=== PATIENT | female | born 1970 | race Caucasian/White ===

== ENCOUNTER 2020-09-22 05:57 | Inpatient (IN) ==
--- NOTE | 2020-09-05 14:44 | PAT Medication Instructions ---
Medication Instructions Date of Service September 05, 2020 Home Medications acetaminophen [Tylenol Extra Strength] 1,000 mg PO Q6H PRN albuterol sulfate [Ventolin HFA] 2 puff INHALATION Q6H PRN ascorbic acid (vitamin C) [Vitamin C] 1,000 mg PO QAM atorvastatin 80 mg PO PM cholecalciferol (vitamin D3) [Vitamin D3] 50 mcg PO QAM fluticasone furoate-vilanterol [Breo Ellipta] 1 inh INHALATION QAM hydrochlorothiazide 12.5 mg PO QAM insulin glargine [Lantus Solostar U-100 Insulin] 70 unit SUBCUT HS insulin glulisine U-100 [Apidra SoloStar U-100 Insulin] 10 - 20 unit SUBCUT TIDM levothyroxine 137 mcg PO QAM lisinopril 40 mg PO QAM metoprolol tartrate 100 mg PO QAM multivitamin 1 tab PO QAM omeprazole 40 mg PO BID venlafaxine [Effexor] 75 mg PO BID zinc 50 mg PO QAM DO NOT take the morning of surgery ascorbic acid (vitamin C) [Vitamin C] 1,000 mg PO QAM cholecalciferol (vitamin D3) [Vitamin D3] 50 mcg PO QAM hydrochlorothiazide 12.5 mg PO QAM insulin glulisine U-100 [Apidra SoloStar U-100 Insulin] 10 - 20 unit SUBCUT TIDM lisinopril 40 mg PO QAM multivitamin 1 tab PO QAM zinc 50 mg PO QAM Take morning of surgery With a small sip of water, OTHERWISE NOTHING TO EAT OR DINK AFTER MIDNIGHT: acetaminophen [Tylenol Extra Strength] 1,000 mg PO Q6H PRN (okay to take up to 4 hours prior to surgery if needed) albuterol sulfate [Ventolin HFA] 2 puff INHALATION Q6H PRN (use if needed; please bring rescue inhaler with you to hospital day of surgery if possible) fluticasone furoate-vilanterol [Breo Ellipta] 1 inh INHALATION QAM levothyroxine 137 mcg PO QAM metoprolol tartrate 100 mg PO QAM omeprazole 40 mg PO BID venlafaxine [Effexor] 75 mg PO BID Take evening before surgery acetaminophen [Tylenol Extra Strength] 1,000 mg PO Q6H PRN (if needed) albuterol sulfate [Ventolin HFA] 2 puff INHALATION Q6H PRN (if needed) atorvastatin 80 mg PO PM insulin glargine [Lantus Solostar U-100 Insulin] 70 unit SUBCUT HS insulin glulisine U-100 [Apidra SoloStar U-100 Insulin] 10 - 20 unit SUBCUT TIDM omeprazole 40 mg PO BID venlafaxine [Effexor] 75 mg PO BID Other Notes If you have any questions please call us at [phone] or [phone] or [phone] or [phone]
--- NOTE | 2020-09-08 11:10 | Anesthesiology Consultation ---
Date of Service September 08, 2020 Assessment & Plan (1) Encounter for pre-operative examination: - Abnormal preop EKG: Unconfirmed preop EKG done 09/08/20 notes T wave abnormality, consider lateral ischemia. Awaiting cardiology response. - Awaiting surgeon-ordered PCP clearance. - COVID screening: Per assessment on 09/08: Travel screen negative, no known COVID-19 positive contacts or current COVID-19 related symptoms. Surgeon arranging preop COVID testing. Awaiting results. - Check BSG, test AM DOS - S/P Right shoulder arthroscopy, SAD, distal clavicle excision (08/08/17): Grade view 3, MAC#3, ETT 7 + PNB at [facility] Chart Review Chart Review: Patient seen in Pre Admission Testing Teaching & Discussion Pre-Anesthesia Teaching/Discussion Notes: Instructed NPO after midnight before surgery,except medications with 15 cc of water. Medication instructions provided according to the PAT guidelines. History Surgery Operation Date: 09/22/20 09:20 Proposed Procedures p L3-L4 Decompression Fusion, Spinal Cord Monitoring - Don Zayas DO Height/Weight Height: 5 ft 2 in Weight: 72.7 kg Allergies Allergy/AdvReac Type Severity Reaction Status Date / Time acetaminophen Allergy Severe Anaphylaxis Verified 09/08/20 14:53 ortega Allergy Severe Anaphylaxis Verified 09/08/20 14:53 ibuprofen Allergy Severe Anaphylaxis Verified 09/08/20 14:53 naproxen Allergy Severe Anaphylaxis Verified 09/08/20 14:53 oxycodone Allergy Severe Anaphylaxis Verified 09/08/20 14:53 Penicillins Allergy Severe Anaphylaxis Verified 09/08/20 14:53 pineapple Allergy Severe Anaphylaxis Verified 09/08/20 14:53 Medications Home Medications Medication Instructions Recorded Confirmed Last Taken Albuterol Sulfate (Proair 1 puff INHALATION DAILY #0 08/12/17 Unknown Respiclick) FLUTICASONE PROP/SALMETEROL 1 puff INHALATION BID #0 inhaler 08/12/17 Unknown (Advair Diskus 500/50 60 Dose) Insulin Glargine (Lantus) 42 unit SC QPM #0 vial 08/12/17 Unknown Lisinopril (Zestril) 40 mg PO DAILY #0 tab 08/12/17 Unknown Multiple Vitamins W/ Minerals 1 tab PO DAILY #0 08/12/17 Unknown (Airborne Immune System) Multivitamin 1 tab PO DAILY #0 tab 08/12/17 Unknown VENLAFAXINE HCL (EFFEXOR XR) 1 cap PO BID #0 08/12/17 Unknown acetaminophen 500 mg capsule 1,000 mg PO Q6H PRN 09/05/20 09/05/20 Unknown albuterol sulfate 90 mcg/actuation 2 puff INHALATION Q6H PRN 09/05/20 09/05/20 Unknown aerosol inhaler (Ventolin HFA) ascorbic acid (vitamin C) 1,000 mg 1,000 mg PO QAM 09/05/20 09/05/20 Unknown tablet,extended release (Vitamin C ER) atorvastatin 80 mg tablet 80 mg PO PM 09/05/20 09/05/20 Unknown cholecalciferol (vitamin D3) 50 50 mcg PO QAM 09/05/20 09/05/20 Unknown mcg (2,000 unit) capsule (Vitamin D3) fluticasone furoate 100 1 inh INHALATION QAM 09/05/20 09/05/20 Unknown mcg-vilanterol 25 mcg/dose inhalation powder (Breo Ellipta) hydrochlorothiazide 12.5 mg capsule 12.5 mg PO QAM 09/05/20 09/05/20 Unknown insulin glargine 100 unit/mL (3 70 unit SUBCUT HS 09/05/20 09/05/20 Unknown mL) subcutaneous pen (Lantus Solostar U-100 Insulin) insulin glulisine U-100 100 10 - 20 unit SUBCUT TIDM 09/05/20 09/05/20 Unknown unit/mL subcutaneous pen (Apidra SoloStar U-100 Insulin) levothyroxine 137 mcg tablet 137 mcg PO QAM 09/05/20 09/05/20 Unknown lisinopril 40 mg tablet 40 mg PO QAM 09/05/20 09/05/20 Unknown metoprolol tartrate 100 mg tablet 100 mg PO QAM 09/05/20 09/05/20 Unknown multivitamin 1 tab PO QAM 09/05/20 09/05/20 Unknown omeprazole 40 mg capsule,delayed 40 mg PO BID 09/05/20 09/05/20 Unknown release venlafaxine 75 mg tablet 75 mg PO BID 09/05/20 09/05/20 Unknown zinc 50 mg tablet 50 mg PO QAM 09/05/20 09/05/20 Unknown Past Medical History Medical History Anxiety Arthritis Asthma controlled Cancer Thyroid s/p surgery and radiation (no chemo) Depression Diabetes mellitus type 1 IDDM Fatty liver GERD (gastroesophageal reflux disease) controlled Hyperlipidemia Hypertension Post-operative hypothyroidism Exercise / Class Metabolic Activity III < 4 Walking/Shop/Light housework (one FS (no CP, very mild SOB)) Past Family History Family History Mother Family history of reaction to anesthesia SLOW TO WAKE UP Family history of diabetes mellitus Past Surgical History Surgical History H/O neck surgery x2 (20 years ago, 10 years ago) > + metal implants History of colonoscopy 2020 History of esophagogastroduodenoscopy (EGD) Multiple History of open reduction and internal fixation (ORIF) procedure Wrist History of shoulder surgery Right x2 Right shoulder arthroscopy, SAD, distal clavicle excision (08/08/17): Grade view 3, MAC#3, ETT 7 + PNB at [facility] History of thyroidectomy, total 2018 Past Anesthesia History Mother: + "slow to wake" + PONV Patient: + "slow to wake." Also, + Dyspnea after in PACU ([place]) > put tube back in and kept in PACU longer (with neck surgery, [facility] [place] 20 years ago). No similar issues with more recent surgeries/anesthesia. History of PONV History of PONV and Hx of Motion Sickness (occasional) Social History Smoking Status: Former smoker Do You Dip or Chew Tobacco: No Smoking End Date: Quit as teen Hx Alcohol Use: No Hx Substance Use: No Review of Systems Patient denies chest pain, shortness of breath, fever, chills, cough, wheezing, palpitations. Physical Exam Vital Signs VITALS BP 120/74 P 89 TEMP 99.4 SP02 96%RA RESP 16 PHYSICAL Full cervical extension range of motion. Full TMJ range of motion. TMD 2.5 finger breaths Mallampati Score 1 Dentition: edentulous Lungs: clear throughout to auscultation Cardiac: regular rate and rhythm, no murmurs noted Spine: normal Carotid arteries: negative bruit Extremities: no edema Lab Results Anesthesia Preop Results Results Anesthesia Widget: WBC 7.75 K/uL (4.8-10.8) 09/08/20 Hgb 12.6 g/dL (12.0-16.0) 09/08/20 Hct 36.8 % (37-47) L 09/08/20 Plt 250 K/uL (130-400) 09/08/20 Na 136 mmol/L (136-145) 09/08/20 K 4.1 mmol/L (3.5-5.1) 09/08/20 Cl 101 mmol/L (98-107) 09/08/20 CO2 32 mmol/L (21-32) 09/08/20 BUN 15 mg/dl (7-18) 09/08/20 Creat 0.83 mg/dl (0.6-1.2) 09/08/20 Glucose Level 316 mg/dl (70-99) H* 09/08/20 POC Glucose 108 mg/dl (70-90) H 08/18/17 PT 9.4 Seconds (9.0-12.0) 09/08/20 PTT 22.8 Seconds (21.0-31.0) 09/08/20 INR 0.9 (0.9-1.1) 09/08/20 HA1c 9.3 % (4.5-5.6) H 09/08/20 Urine Color Yellow 09/08/20 Urine Appearance Clear (Clear) 09/08/20 Urine pH 6.0 (4.5-7.5) 09/08/20 Urine Specific [place] 1.036 (1.000-1.030) H 09/08/20 Urine Protein Negative (Negative) 09/08/20 Urine Glucose (UA) 3+ (Negative) H 09/08/20 Urine Ketones Trace (Negative) H 09/08/20 Urine Blood Negative (Negative) 09/08/20 Urine Nitrite Negative (Negative) 09/08/20 Urine Bilirubin Negative (Negative) 09/08/20 Urine Urobilinogen Negative (Negative) 09/08/20 Urine Leukocyte Esterase Trace (Negative) H 09/08/20 Urine WBC (Auto) >30 /hpf (0-5) H 09/08/20 Urine RBC (Auto) 0-4 /hpf (0-4) 09/08/20 Urine Hyaline Casts (Auto) 1-5 /lpf (0-5) 09/08/20 Urine Epithelial Cells (Auto) 20-30 /lpf (0-5) H 09/08/20 Urine Bacteria (Auto) Negative (Negative) 09/08/20 Blood Type A Positive 09/08/20 Antibody Screen NEGATIVE 09/08/20 Lab Comments: Type 1 DM. Surgeon's office made aware of elevated hgba1c/glucose (hgba1c EAG = 220). Preop testing to be forwarded to PCP for continuity of care* Testing Electrocardiogram Date: 09/08/20 Normal sinus rhythm at 90 bpm. SCOT. Moderate voltage criteria for LVH, may be normal variant. T wave abnormality, consider lateral ischemia. Unconfirmed report. Chest X-Ray Date: 09/08/20 Findings: + NAD
[2020-09-22] MEDS ORDERED: CLINDAMYCIN 600 MG/54 ML BAG IV SCH (06:00)
[2020-09-22] MEDS ORDERED: GABAPENTIN 900 MG DOSE PO SCH (06:00)
[2020-09-22] MEDS ORDERED: LR 15ML/HR IV SCH (06:00)
[2020-09-22] MEDS ORDERED: ACETAMINOPHEN 500 MG TAB ONE (06:19)
[2020-09-22] MEDS ORDERED: LIDOCAINE 2% 2 ML VIAL/AMP(20MG/ML) INFIL ONE (06:51)
[2020-09-22] MEDS ORDERED: MIDAZOLAM HCL 1 MG/ML 2ML VIAL ONE (06:51)
[2020-09-22] MEDS ORDERED: PROPOFOL IV EMULSION 10 MG/ML 20 ML VIAL IV ONE (06:51)
[2020-09-22] MEDS ORDERED: ONDANSETRON INJ 2 MG/ML 2 ML VIAL ONE ×2 (06:51→08:36)
[2020-09-22] MEDS ORDERED: ROCURONIUM BROMIDE 10 MG/ML 5 ML VIAL IV ONE (06:51)
[2020-09-22] MEDS ORDERED: fentaNYL citrate 100 MCG/2 ML VIAL ONE (06:51)
[2020-09-22] MEDS ORDERED: BUPIVACAINE/EPINEPHRINE 0.5% MPF 1:200,000 30 ML VIAL ONE (07:01)
--- NOTE | 2020-09-22 07:23 | History & Physical Bridge Note ---
Date of Service September 22, 2020 History & Physical Bridge Note I have examined the patient, reviewed the History & Physical and in the interval since the performance of the History & Physical I have noted the following changes of clinical significance: no changes noted
[2020-09-22] MEDS ORDERED: NALOXONE HCL 0.4 MG/1 ML VIAL/CARP IV PRN ×2 (07:24→13:33)
[2020-09-22] MEDS ORDERED: LABETALOL HCL IV 5 MG/ML 20ML IV PRN (07:24)
[2020-09-22] MEDS ORDERED: ATROPINE SULFATE 0.1 MG/ML 10ML SYR IV PRN (07:24)
[2020-09-22] MEDS ORDERED: ePHEDrine sulfate 50 MG/ML AMP IV PRN (07:24)
[2020-09-22] MEDS ORDERED: FLUMAZENIL 0.1 MG/1 ML 10 ML VIAL IV PRN (07:24)
[2020-09-22] MEDS ORDERED: ONDANSETRON INJ 2 MG/ML 2 ML VIAL IV PRN ×2 (07:24→13:33)
[2020-09-22] MEDS ORDERED: PROMETHAZINE HCL 12.5 MG in SODIUM CHLORIDE 0.9% 50 ML IV PRN ×2 (07:24→13:33)
--- NOTE | 2020-09-22 07:26 | History & Physical Report ---
Date of Service September 22, 2020 Assessment & Plan (1) Neurogenic claudication due to lumbar spinal stenosis: Plan: L3-L4 decompression fusion History of Present Illness Chief Complaint: Back and leg pain Primary Care Provider: Brinda Garcia This is a 50-year-old female who presents with chronic persistent back and leg pain. Failing course of nonoperative care is here for surgical intervention. Allergies Allergy/AdvReac Type Severity Reaction Status Date / Time ortega Allergy Severe Anaphylaxis Verified 09/08/20 14:53 ibuprofen Allergy Severe Anaphylaxis Verified 09/08/20 14:53 naproxen Allergy Severe Anaphylaxis Verified 09/08/20 14:53 oxycodone Allergy Severe Anaphylaxis Verified 09/08/20 14:53 Penicillins Allergy Severe Anaphylaxis Verified 09/08/20 14:53 pineapple Allergy Severe Anaphylaxis Verified 09/08/20 14:53 fruit Allergy Difficulty Uncoded 09/22/20 06:12 Breathing Home Medications Medication Instructions Recorded Confirmed Type Insulin Glargine (Lantus) 60 unit SC QPM #0 vial 08/12/17 09/22/20 History acetaminophen 500 mg capsule 1,000 mg PO Q6H PRN 09/05/20 09/22/20 History albuterol sulfate 90 mcg/actuation 2 puff INHALATION Q6H PRN 09/05/20 09/22/20 History aerosol inhaler (Ventolin HFA) ascorbic acid (vitamin C) 1,000 mg 1,000 mg PO QAM 09/05/20 09/22/20 History tablet,extended release (Vitamin C ER) atorvastatin 80 mg tablet 80 mg PO PM 09/05/20 09/22/20 History cholecalciferol (vitamin D3) 50 50 mcg PO QAM 09/05/20 09/22/20 History mcg (2,000 unit) capsule (Vitamin D3) fluticasone furoate 100 1 inh INHALATION QAM 09/05/20 09/22/20 History mcg-vilanterol 25 mcg/dose inhalation powder (Breo Ellipta) hydrochlorothiazide 12.5 mg capsule 12.5 mg PO QAM 09/05/20 09/22/20 History insulin glulisine U-100 100 10 - 20 unit SUBCUT TIDM 09/05/20 09/22/20 History unit/mL subcutaneous pen (Apidra SoloStar U-100 Insulin) levothyroxine 137 mcg tablet 137 mcg PO QAM 09/05/20 09/05/20 History lisinopril 40 mg tablet 40 mg PO QAM 09/05/20 09/22/20 History metoprolol tartrate 100 mg tablet 100 mg PO QAM 09/05/20 09/22/20 History multivitamin 1 tab PO QAM 09/05/20 09/22/20 History omeprazole 40 mg capsule,delayed 40 mg PO BID 09/05/20 09/05/20 History release venlafaxine 75 mg tablet 75 mg PO BID 09/05/20 09/05/20 History zinc 50 mg tablet 50 mg PO QAM 09/05/20 09/22/20 History Past Med/Surg History Medical History Anxiety Arthritis Asthma controlled Cancer Thyroid s/p surgery and radiation (no chemo) Depression Diabetes mellitus type 1 IDDM Fatty liver GERD (gastroesophageal reflux disease) controlled Hyperlipidemia Hypertension Post-operative hypothyroidism Surgical History H/O neck surgery x2 (20 years ago, 10 years ago) > + metal implants History of colonoscopy 2020 History of esophagogastroduodenoscopy (EGD) Multiple History of open reduction and internal fixation (ORIF) procedure Wrist History of shoulder surgery Right x2 Right shoulder arthroscopy, SAD, distal clavicle excision (08/08/17): Grade view 3, MAC#3, ETT 7 + PNB at [facility] History of thyroidectomy, total 2019 Family History Mother Family history of reaction to anesthesia SLOW TO WAKE UP Family history of diabetes mellitus Social History (System 09/08/20 @ 11:49 by Lucretia Leblanc) Smoking Status: Former smoker Smoking End Date: Quit as teen; Second Hand Exposure: Yes (PARENTS SMOKED); Do You Dip or Chew Tobacco: No; Hx Alcohol Use: No Hx Substance Use: No Preferred Language: Malay Communication Ability: Effective International Trade Manager Required: No Beliefs That Will Affect Care: None Current Living Situation: Spouse current occupational status: unemployed Other Information That Helps Us Care for You: No Feels Safe at Home: Yes Safety Concerns: Feels Safe At This Time Assistive Devices: Glasses Assistive Devices Comment: NO TEETH/DOES WEAR HER DENTURES Physical Exam Physical Exam: Patient is alert and oriented Heart regular rhythm Lungs clear to auscultation Results & Data ([facility]) Vital Signs (Past 12 Hours) Vital Signs Temp Pulse Resp BP Pulse Ox 09/22/20 06:38 36.7 C 88 16 131/75 98
[2020-09-22] MEDS ORDERED: FLOSEAL HEMOSTATIC MATRIX 10ML TOP ONE (08:30)
[2020-09-22] MEDS ORDERED: NEOSTIGMINE METHYLSULFATE 1 MG/ML 10ML VIAL ONE (08:36)
[2020-09-22] MEDS ORDERED: GLYCOPYRROLATE 0.2 MG/ML VIAL ONE (08:36)
[2020-09-22] MEDS ORDERED: SUCCINYLCHOLINE CHLORIDE 20 MG/ML 10 ML VIAL IV ONE (08:36)
[2020-09-22] MEDS ORDERED: ESMOLOL HCL INJ 10 MG/ML 10ML VIAL IV ONE (08:36)
--- NOTE | 2020-09-22 09:19 | Operative Report ---
Post Operative Report Pre & Post Diagnosis Operation Date: 09/22/20 07:45 Pre-Op Diagnosis: Spinal Stenosis, Lumbar Region with Neurogenic Post-Op Diagnosis: Spinal Stenosis, Lumbar Region with Neurogenic I identified the patient and participated in the time-out.: Yes Procedure Operation Date: 09/22/20 07:45 Actual Procedures #1 lumbar decompression with bilateral medial facetectomies and foraminotomies L2-3 L3-L4. #2 posterior spinal fusion L3-L4. #3 placed posterior instrumentation L3-L4. #4 interbody fusion L3-L4. #5 placement peek cage 13 x 22 mm at L3-L4. #6 placement locally harvested morselized autograft in the posterior gutters. #7 placement infuse collagen sponge, and master graft in the posterior gutters and I factor interbody space. Surgeon Don Zayas, Recreation Director None Estimated Blood Loss 50 Findings Consistent with Post-Op Diagnosis Specimens None Indications This is a 50-year-old female presents with above-mentioned diagnosis after failing since course of nonoperative care she is here for the above-mentioned seizure. Description of Procedure Patient was met with identified informed consent obtained. Patient was then taken to the operative suite Underwent intubation placed in prone position the Varghese table Sven frame. Bony prominences well-padded eyes inspected to ensure no external pressure placed upon them. This point lumbar spine was prepped and draped in a sterile fashion. Sharp dissection with the assistance of Bovie cautery performed down to and exposing the lamina and transverse processes of L3 and L4. From a caudal cephalad fashion complete laminectomy of L3 partial negative L2 was performed including bilateral medial facetectomies and foraminotomies addressing severe spinal stenosis. Pedicle screws were then placed in L3 and L4 bilaterally with assistance of fluoroscopy and the properly sized mary placed. By way of a peña sfemoral approach on the left complete discectomy was performed endplates curetted to subcortical bleeding bone and a 13 x 22 mm peek cage filled with I factor tapped in position. The rods then compressed locked in final position bilaterally. The transverse processes of L3 and L4 burred to subcortical bleeding bone. Infuse collagen sponge master graft local autograft was placed in the posterior gutters. 15 round ANGELINE drain inserted. The incision was then closed with 1 Vicryl the fascia 2-0 Vicryl subcutaneously and 4 Monocryl for final skin closure. Steri-Strip sterile dressings placed. Patient waken taken to PACU stable condition. Please note spinal cord monitoring was utilized at the procedure no changes noted. I attest to the content of the Intraoperative Record and any orders documented therein. Any exceptions are noted below.
[2020-09-22] MEDS: fentaNYL citrate 100 MCG/2 ML VIAL IV PRN ×4 (09:47→10:02)
--- NOTE | 2020-09-22 09:52 | Fluoroscopy Report ---
FL lumbar spine 2-3V CLINICAL HISTORY: L3-4 DECOMPRESSION/FUSION/INTERBODY COMPARISON STUDY: None. FLUOROSCOPY TIME: 13 seconds. FINDINGS: 2 fluoroscopic spot image of the lower lumbar spine demonstrate posterior decompression and fusion within the lower lumbar spine with pedicle screws and rods. The exact levels are difficult to assess on this limited imaging but appears to represent the L3-L4 level if L5 is considered a transi tional vertebra. IMPRESSION: Posterior decompression fusion within the lower lumbar spine described above. The hardwar e appears intact. ACT 112: Negative or not required by law. Electronically signed by: Eric Lynne M.D. 09/22/2020 9:50 AM
[2020-09-22] MEDS ORDERED: PHARMACY GLYCEMIC MGMT CONSULT PRN (09:57)
[2020-09-22] MEDS ORDERED: HYDROmorphone INJ 0.5 MG/0.5 ML SYR ONE (10:20)
[2020-09-22] MEDS: HYDROmorphone INJ 1 MG/ML SYRINGE IV PRN ×2 (10:21→10:26)
--- NOTE | 2020-09-22 10:55 | Anesthesiology Progress Note ---
Date of Service September 22, 2020 Anesthesia Post Procedure Vital Signs Vital Signs: Temp Pulse Pulse Resp BP BP Pulse Ox 09/22/20 10:45 99 H 18 142/69 H 98 09/22/20 10:35 99 H 18 149/68 H 98 09/22/20 10:25 36.5 C 85 16 125/60 94 09/22/20 10:15 95 H 16 150/65 H 100 09/22/20 10:05 93 H 16 151/68 H 99 09/22/20 09:55 95 H 16 134/82 99 09/22/20 09:45 91 H 16 154/65 H 100 09/22/20 09:35 36.6 C 94 H 16 135/68 100 09/22/20 06:38 36.7 C 88 16 131/75 98 Pain Intensity Back: Pain Intensity: 4 Transfer of Care Handoff Completed per policy Notes Mental Status: alert / awake / arousable Patient Amnestic to Procedure: Yes Nausea / Vomiting: adequately controlled Pain: adequately controlled Airway Patency, RR, SpO2: stable & adequate BP & HR: stable & adequate Hydration State: stable & adequate Anesthetic Complications: no major complications apparent
[2020-09-22] MEDS ORDERED: SOD PHOSPHATE/SOD BIPHOSPHATE ENEMA 132 ML BTL PR PRN (13:33)
[2020-09-22] MEDS ORDERED: ALUMINUM/MAGNESIUM SUSP 30 ML UDC PO PRN (13:33)
[2020-09-22] MEDS ORDERED: FAMOTIDINE 20 MG TAB PO PRN (13:33)
[2020-09-22] MEDS ORDERED: LORazepam 0.5 MG TAB PO PRN (13:33)
[2020-09-22] MEDS ORDERED: METOCLOPRAMIDE HCL INJ 5 MG/ML 2 ML VIAL IV PRN (13:33)
[2020-09-22] MEDS ORDERED: NON-FORMULARY MEDICATION (Acetaminophen 500 mg Capsule) PO PRN (13:33)
[2020-09-22] MEDS ORDERED: DO NOT ADMINISTER PNEUMOCOCCAL VACCINE PRN (13:33)
[2020-09-22] MEDS ORDERED: diphenhydrAMINE Capsule 25 MG CAP PO PRN (13:33)
[2020-09-22] MEDS ORDERED: DO NOT ADMINISTER FLU VACCINE PRN (13:33)
[2020-09-22] MEDS ORDERED: ALBUTEROL HFA 8 GM INHALER INH PRN (13:33)
[2020-09-22] MEDS ORDERED: ACETAMINOPHEN 1,000 MG/100 ML VIAL IV PRN (13:33)
[2020-09-22] MEDS ORDERED: SODIUM CHLORIDE 0.9% 1000ML 1,000 ML IV SCH (13:33)
[2020-09-22] MEDS ORDERED: hydrOXYzine HCl 25 MG TAB PO PRN (13:33)
[2020-09-22] MEDS ORDERED: bisacodyL 10 MG SUPP PR PRN (13:33)
[2020-09-22] MEDS ORDERED: MAGNESIUM HYDROXIDE SUSP 30 ML UDC PO PRN (13:33)
[2020-09-22] MEDS ORDERED: ONDANSETRON 4 MG OD TAB PO PRN (13:33)
[2020-09-22] MEDS ORDERED: LORazepam 0.5 MG/1 ML VIAL IV PRN (13:33)
[2020-09-22] MEDS ORDERED: DEXTROSE 50% 50 ML SYRINGE IV PRN (14:00)
[2020-09-22] MEDS ORDERED: CARBOHYDRATES FOR HYPOGLYCEMIA PO PRN (14:00)
[2020-09-22] MEDS ORDERED: GLUCOSE 40% GEL 15 GM TUBE PO PRN (14:00)
[2020-09-22] MEDS ORDERED: GLUCAGON FOR INJ 1 MG VIAL IM PRN (14:00)
[2020-09-22] MEDS ORDERED: GLUCOSE 10 TABS/TUBE PO PRN (14:00)
--- NOTE | 2020-09-22 15:32 | Pharmacy Report ---
Pharmacy Glycemic Short Note 2 - Date of Service September 22, 2020 - Glycemic Short BSG Results (Last 24 hours): 09/22/20 09/22/20 09/22/20 06:21 09:46 13:36 POC Glucose 176 H 174 H 173 H OUTPATIENT ANTIDIABETIC REGIMEN: * Lantus 60 units SQ QAM * Apidra 10-20 units TID with meals ASSESSMENT: * 50 y/o F admitted for lumbar decompression surgery. Patient is a Type 1 diabetic maintained on basal and bolus insulin at home. * Pt received her basal insulin dose last night. Fasting BSG was 176 mg/dl this AM. Continued same dose. * Novolog parameters ordered based on total home insulin dosing of around 120 units per day. PLAN FOR INPATIENT GLYCEMIC CONTROL: * Hold outpatient oral diabetes medications * Basal insulin * Lantus 60 units SQ HS * Bolus insulin * NovoLog per scale ACHS or Q6hrs while NPO * Goal Range: Low 110 mg/dL - High 140 mg/dL * Correction Factor: 15 mg/dL/unit * Nutritional / Prandial insulin per carb ratio of 1 unit per 5 grams CHO consumed PLAN FOR DISCHARGE: * TBD
[2020-09-22] MEDS: HYDROmorphone INJ 0.5 MG/0.5 ML SYR IV PRN (16:16)
[2020-09-22] MEDS: CLINDAMYCIN 600 MG in DEXTROSE 5% 50 ML IV SCH ×2 (16:26→23:51)
--- NOTE | 2020-09-22 16:35 | Consultation ---
Date of Consultation September 22, 2020 Assessment & Plan (1) Chest pain: Pt c/o anterior chest pressure post op with SOB Tachycardia noted in 120's down to high 90's. 97% on 2 L oxygen. EKG sinus rhythm, T wave inversions inferior lateral leads. This was compared to prior EKG and there is no significant change. Reported h/o chronic intermittent anterior chest pain that occurs on almost daily basis and can occur at rest or exertion and that today's pain felt like her chest pain but was more intense. follows with cardiology in [place]. History normal stress test, echo showed LVH, and cardiac MRI showed LVH, no evidence for MA, scarring Currently pt reports chest pain "pretty much resolved" Trend troponin Plan to wean oxygen. If pt hypoxic consider further w/u to r/o PE Pt missed metoprolol tartrate today. Will resume. EKG am (2) S/P spinal surgery: Post op day# 0 S/P L2-L4 decompression, L3-L4 fusion by Dr Chana BRADFORD# 50ml pain management per ortho wound management per ortho PT/OT as appropriate DVT prophylaxis per ortho incentive spirometry monitor H&H for acute blood loss anemia; pre-op Hgb: 12.6 (3) Diabetes mellitus type 1: A1c: 9.3 08/2020 Hold home insulin Basal bolus insulin per protocol. Glycemic pharmacist on board, appreciate glycemic management (4) Hypertension: Continue lisinopril, metoprolol Hold HCTZ and reassess tomorrow (5) Hyperlipidemia: Continue atorvastatin (6) Asthma: No signs of exacerbation Continue home inhalers (7) Thyroid cancer: S/P Surgery and Radiation Post op hypothyroidism Continue levothyroxine (8) Depression: Anxiety Continue Effexor DVT Prophylaxis -SCDs per ortho spine Follows with Dr Garcia in [place], [place] for routine care Pt was seen and care coordinated with Dr Thompson. See addendum Thank you for this consultation. We will follow the patient with you during their hospital stay. You can reach a member of the [facility] 16/09 via [employer]. Supervising Physician Co-Signing Physician Notes I have seen and examined the patient and have discussed the case with the provider above. I agree with the assessment and plan as stated. The patient is a 50-year-old female who developed intense postoperative chest pain. She is an uncontrolled diabetic with a history of chronic pain in this same distribution she is reporting. Specifically, her pain is around her left anterior chest and under her breast, reproducible to palpation of her chest wall. She was given a dose of Dilaudid and later reported persistent but improving pain. Out of concern for developing ACS, a further work-up was pursued. Troponin will be trended overnight, chest x-ray was ordered, EKG revealed lateral T wave inversions that were unchanged from prior, will trend daily EKG. If any further concerns in a.m., will consider consulting cardiology. Of note, she did not receive her morning dose of beta-brie and will receive metoprolol now. She is notably tachycardic with a heart rate in the 90s. Continue postoperative care per orthopedic spine. Otherwise agree with management as above. Appreciate glycemic management assistance from glycemic pharmacist. Thank you for this consultation--we will follow the patient throughout her hospital stay. DO Jay History of Present Illness Requesting Physician: Dr Zayas Reason for Consultation: Post op medical management. Episode of chest pain Attending Physician: Don Zayas DO History of Present Illness Pt is 50 y/o F with PMH DM II, asthma, anxiety, thyroid cancer s/p surgery and radiation, HTN, HLD, GERD, fatty liver seen in medical consultation s/p L2-L4 decompression, L3-L4 fusion today by Dr. Zayas. Postoperatively patient reports entire anterior chest pain described as pressure and nonradiating. She reports this occurred while in PACU. Patient states currently chest pain is decreasing. It was associated with shortness of breath. Denies known palpitations or associated dizziness. On medical floor patient noted to be tachycardic up to 122, was 97% on 2 L oxygen. EKG obtained showing sinus rhythm, T wave inversions inferior lateral leads. This was compared to prior EKG and there is no significant change. Pt reports h/o chronic intermittent anterior chest pain that occurs on almost daily basis and can occur at rest or exertion. States this chest pain today feels like her chronic pain, but felt more intense today. She follows with cardiology in [place]. History normal stress test, echo showed LVH, and cardiac MRI showed LVH. Post op c/o low back pain. Currently reports chest pain improved and not having SOB. Pulse in high 90's. Denies nausea, vomiting. Has not urinated yet post op. Allergies Allergy/AdvReac Type Severity Reaction Status Date / Time ortega Allergy Severe Anaphylaxis Verified 09/08/20 14:53 ibuprofen Allergy Severe Anaphylaxis Verified 09/08/20 14:53 naproxen Allergy Severe Anaphylaxis Verified 09/08/20 14:53 oxycodone Allergy Severe Anaphylaxis Verified 09/08/20 14:53 Penicillins Allergy Severe Anaphylaxis Verified 09/08/20 14:53 pineapple Allergy Severe Anaphylaxis Verified 09/08/20 14:53 fruit Allergy Difficulty Uncoded 09/22/20 06:12 Breathing Home Medications Medication Instructions Recorded Confirmed Type Insulin Glargine (Lantus) 60 unit SC QPM #0 vial 08/12/17 09/22/20 History acetaminophen 500 mg capsule 1,000 mg PO Q6H PRN 09/05/20 09/22/20 History albuterol sulfate 90 mcg/actuation 2 puff INHALATION Q6H PRN 09/05/20 09/22/20 History aerosol inhaler (Ventolin HFA) ascorbic acid (vitamin C) 1,000 mg 1,000 mg PO QAM 09/05/20 09/22/20 History tablet,extended release (Vitamin C ER) atorvastatin 80 mg tablet 80 mg PO PM 09/05/20 09/22/20 History cholecalciferol (vitamin D3) 50 50 mcg PO QAM 09/05/20 09/22/20 History mcg (2,000 unit) capsule (Vitamin D3) fluticasone furoate 100 1 inh INHALATION QAM 09/05/20 09/22/20 History mcg-vilanterol 25 mcg/dose inhalation powder (Breo Ellipta) hydrochlorothiazide 12.5 mg capsule 12.5 mg PO QAM 09/05/20 09/22/20 History insulin glulisine U-100 100 10 - 20 unit SUBCUT TIDM 09/05/20 09/22/20 History unit/mL subcutaneous pen (Apidra SoloStar U-100 Insulin) levothyroxine 137 mcg tablet 137 mcg PO QAM 09/05/20 09/05/20 History lisinopril 40 mg tablet 40 mg PO QAM 09/05/20 09/22/20 History metoprolol tartrate 100 mg tablet 100 mg PO BID 09/05/20 09/22/20 History multivitamin 1 tab PO QAM 09/05/20 09/22/20 History omeprazole 40 mg capsule,delayed 40 mg PO BID 09/05/20 09/05/20 History release venlafaxine 75 mg tablet 75 mg PO BID 09/05/20 09/05/20 History zinc 50 mg tablet 50 mg PO QAM 09/05/20 09/22/20 History hydrocodone 5 mg-acetaminophen 325 See Rx Instructions .ROUTE 09/22/20 Rx mg tablet .COMPLEX PRN #30 tab tramadol 50 mg tablet 50 mg PO Q6H PRN #30 tab 09/22/20 Rx Patient History Medical History (Updated 09/22/20 @ 22:02 by Princess Bernal PA-C) Anxiety Arthritis Asthma controlled Cancer Thyroid s/p surgery and radiation (no chemo) Depression Diabetes mellitus type 1 IDDM Fatty liver GERD (gastroesophageal reflux disease) controlled Hyperlipidemia Hypertension Post-operative hypothyroidism Thyroid cancer Surgical History (Updated 09/22/20 @ 21:54 by Princess Bernal PA-C) H/O neck surgery x2 (20 years ago, 10 years ago) > + metal implants History of colonoscopy 2020 History of esophagogastroduodenoscopy (EGD) Multiple History of open reduction and internal fixation (ORIF) procedure Wrist History of shoulder surgery Right x2 Right shoulder arthroscopy, SAD, distal clavicle excision (08/08/17): Grade view 3, MAC#3, ETT 7 + PNB at [facility] History of thyroidectomy, total 2019 Family History Mother Family history of reaction to anesthesia SLOW TO WAKE UP Family history of diabetes mellitus Social History Smoking Status: Former smoker Smoking End Date: Quit as teen; Second Hand Exposure: Yes (PARENTS SMOKED); Do You Dip or Chew Tobacco: No; Hx Alcohol Use: No Hx Substance Use: No Preferred Language: Lao Communication Ability: Effective [employer] Required: No Beliefs That Will Affect Care: None Current Living Situation: Spouse current occupational status: unemployed Other Information That Helps Us Care for You: No Feels Safe at Home: Yes Safety Concerns: Feels Safe At This Time Assistive Devices: Glasses Assistive Devices Comment: NO TEETH/DOES WEAR HER DENTURES Review of Systems Review of Systems: All systems reviewed & are unremarkable except as noted in HPI & below Physical Exam Physical Exam: General: no distress, WDWN Head: normocephalic, atraumatic Eyes: PERRL, EOM's intact, conjunctiva non-injected, anicteric ENT: normal inspection external ears, nose, mucous membranes moist Neck: supple, trachea midline Lungs: clear, no respiratory distress, no wheezing/rhonchi/rales CV: RRR, systolic murmur, no pretibial edema Abd: normal BS, soft, non-tender Back: surgical dressing in place is dry and intact. ANGELINE Drain with serosanguineous Ext: no cyanosis, no calf tenderness Neuro: A&O x 3, no focal deficits noted, normal affect Skin: warm, dry Results & Data ([facility]) Vital Signs (Past 12 Hours) Vital Signs Temp Pulse Pulse Resp BP BP Pulse Ox 09/22/20 16:10 37.0 C 104 H 16 132/72 98 09/22/20 15:10 36.9 C 100 H 16 114/70 98 09/22/20 14:10 37.3 C 107 H 16 105/66 97 09/22/20 13:40 36.7 C 122 H 14 142/75 H 97 09/22/20 13:10 37.0 C 127 H 128/71 97 09/22/20 12:30 36.6 C 99 H 16 109/56 L 99 09/22/20 11:30 98 H 16 109/53 L 99 09/22/20 10:45 99 H 18 142/69 H 98 09/22/20 10:35 99 H 18 149/68 H 98 09/22/20 10:25 36.5 C 85 16 125/60 94 09/22/20 10:15 95 H 16 150/65 H 100 09/22/20 10:05 93 H 16 151/68 H 99 09/22/20 09:55 95 H 16 134/82 99 09/22/20 09:45 91 H 16 154/65 H 100 09/22/20 09:35 36.6 C 94 H 16 135/68 100 09/22/20 06:38 36.7 C 88 16 131/75 98
--- NOTE | 2020-09-22 17:25 | Electrocardiogram Report ---
Test Reason : Blood Pressure : / mmHG Vent. Rate : 098 BPM Atrial Rate : 098 BPM P-R Int : 146 ms QRS Dur : 084 ms QT Int : 350 ms P-R-T Axes : 050 007 130 degrees QTc Int : 446 ms Normal sinus rhythm Left ventricular hypertrophy with repolarization abnormality Abnormal ECG When compared with ECG of 08-SEP-2020 12:21, No significant change was found Confirmed by Shilo Tatum ([id number]) on 09/22/2020 5:24:59 PM Referred By: Don Zayas Confirmed By:Shilo Tatum
[2020-09-22] MEDS: INSULIN ASPART 100 UNITS/ML 3 ML PEN SC SCH ×2 (18:21→21:35)
[2020-09-22] MEDS ORDERED: INSULIN GLARGINE 100 UNIT/ML VIAL SC SCH (21:00)
[2020-09-22] MEDS: ATORVASTATIN 40 MG TAB PO SCH (21:15)
[2020-09-22] MEDS: DOCUSATE SODIUM/SENNA 50/8.6MG TAB PO SCH (21:15)
[2020-09-22] MEDS: VENLAFAXINE HCL 37.5 MG TAB PO SCH (21:15)
[2020-09-22] MEDS: PANTOprazole 40 MG TAB PO SCH (21:18)
[2020-09-22] MEDS ORDERED: INSULIN GLARGINE 100 UNIT/ML VIAL SC ONE (21:30)
[2020-09-22] MEDS ORDERED: NITROGLYCERIN SL 0.4 MG/TAB TAB SL PRN (21:48)
--- NOTE | 2020-09-22 22:25 | XRay Report ---
XR chest 1V portable HISTORY: 50 years-old Female post op chest pain acute atypical chest pain COMPARISON: 09/08/2020 TECHNIQUE: AP view of the chest FINDINGS: Cardiac silhouette is enlarged. Pulmonary vascular congestion with minimal bibasilar densities. No pn eumothorax. Mild blunting of the left costophrenic angle. No large pleural effusion. Degenerative angelique nges of the shoulders and spine. Cervical spinal fusion hardware. Catheter projects over the left nec k. IMPRESSION: 1. Cardiomegaly with pulmonary vascular congestion. 2. Interval development of mild bibasilar opacities. 3. Equivocal trace left pleural effusion. ACT 112: Negative or not required by law. The above report was generated using voice recognition software. It may contain grammatical, syntax o r spelling errors. Electronically signed by: Jareth Mccrary M.D. 09/22/2020 10:24 PM
[2020-09-23] MEDS: METOPROLOL TARTRATE 100 MG TAB PO SCH ×3 (01:53→21:23)
[2020-09-23] MEDS: ACETAMINOPHEN 500 MG TAB PO PRN ×2 (02:25→12:44)
[2020-09-23] MEDS: HYDROmorphone INJ 0.5 MG/0.5 ML SYR IV PRN (02:59)
[2020-09-23 03:58] LABS: Basophils # (auto) 0.01 K/uL (0-0.2); Basophils % (auto) 0.1 %; Eosinophils # (auto) 0.05 K/uL (0-0.5); Eosinophils % (auto) 0.5 %; Hematocrit (blood only) 29.3 % (37-47); Hemoglobin 9.9 g/dL (12.0-16.0); Immature Granulocytes # (auto) 0.02 K/uL (0.00-0.02); Immature Granulocytes % (auto) 0.2 %; Lymphocytes # (auto) 1.98 K/uL (1.2-3.4); Lymphocytes % (auto) 19.4 %; Mean Corpuscular Hemoglobin 28.9 pg (25-34); Mean Corpuscular Hgb Conc 33.8 g/dL (32-36); Mean Corpuscular Volume 85.4 fL (80-100); Mean Platelet Volume 9.1 fL (7.4-10.4); Monocytes # (auto) 0.97 K/uL (0.11-0.59); Monocytes % (auto) 9.5 %; Neutrophils % (auto) 70.3 %; Platelet Count 219 K/uL (130-400); RDW Coefficient of Variation 13.5 % (11.5-14.5); RDW Standard Deviation 42.3 fL (36.4-46.3); Red Blood Count 3.43 M/uL (4.2-5.4); White Blood Count 10.23 K/uL (4.8-10.8)
[2020-09-23 04:18] LABS: BUN Creatinine Ratio 19.7 (10-20); Blood Urea Nitrogen 9 mg/dl (7-18); Calcium 8.3 mg/dl (8.5-10.1); Carbon Dioxide 29 mmol/L (21-32); Chloride 107 mmol/L (98-107); Creatinine Clr Calc Pharmacy 131.9 ml/min; Est GFR (African American) 132.6 ml/min; Est GFR (Non-African American) 114.4 ml/min; Glucose 83 mg/dl (70-99); Potassium 3.1 mmol/L (3.5-5.1); Sodium 139 mmol/L (136-145)
[2020-09-23 04:23] LABS: Chol HDL Ratio 3; Cholesterol 122 mg/dl (0-200); HDL Cholesterol 44 mg/dl; LDL Cholesterol Calculated 56 mg/dl; Triglycerides 112 mg/dl (0-150); Troponin I < 0.015 ng/ml (0-0.045); VLDL Cholesterol 22 mg/dl
[2020-09-23] MEDS: LEVOTHYROXINE SODIUM 137 MCG TABLET PO SCH (05:36)
[2020-09-23] MEDS: POLYETHYLENE (MIRALAX) 17 GM PACK PO SCH ×3 (05:36→17:59)
--- NOTE | 2020-09-23 07:53 | Electrocardiogram Report ---
Test Reason : Blood Pressure : / mmHG Vent. Rate : 079 BPM Atrial Rate : 079 BPM P-R Int : 160 ms QRS Dur : 088 ms QT Int : 382 ms P-R-T Axes : 046 007 164 degrees QTc Int : 438 ms Normal sinus rhythm Left ventricular hypertrophy with repolarization abnormality Abnormal ECG When compared with ECG of 22-SEP-2020 16:02, No significant change was found Confirmed by Shilo Tatum ([id number]) on 09/23/2020 7:53:33 AM Referred By: Don Zayas Confirmed By:Shilo Tatum
[2020-09-23] MEDS: CHOLECALCIFEROL 1,000 UNITS 25 MCG TAB PO SCH (08:25)
[2020-09-23] MEDS: MULTIVITAMIN TAB PO SCH (08:25)
[2020-09-23] MEDS: ZINC SULFATE 220 MG CAPSULE PO SCH (08:25)
[2020-09-23] MEDS: VENLAFAXINE HCL 37.5 MG TAB PO SCH ×2 (08:25→21:23)
[2020-09-23] MEDS: lisinopril 40 MG TAB PO SCH (08:25)
[2020-09-23] MEDS: PANTOprazole 40 MG TAB PO SCH ×2 (08:25→21:21)
[2020-09-23] MEDS: ASCORBIC ACID 500 MG TAB PO SCH (08:25)
[2020-09-23] MEDS: FLUTICASONE/VILANTEROL 100/25MCG 14 PUFFS/INHALER INH SCH (08:28)
[2020-09-23] MEDS: INSULIN ASPART 100 UNITS/ML 3 ML PEN SC SCH ×4 (08:31→21:17)
[2020-09-23] MEDS ORDERED: hydroCHLOROthiazide 25 MG TAB PO SCH (09:00)
[2020-09-23] MEDS ORDERED: METOPROLOL TARTRATE 100 MG TAB PO SCH (09:00)
--- NOTE | 2020-09-23 09:45 | Orthopedic Progress Note ---
Date of Service September 23, 2020 Assessment & Plan (1) Neurogenic claudication due to lumbar spinal stenosis: Plan: This time initiate physical therapy monitor ANGLEINE output hopefully discharge home Friday. Admission and Anticipated Discharge Date Admission Date: September 22, 2020 Subjective Back pain is controlled leg symptoms improved Physical Exam Physical Exam: Patient has good strength testing appears comfortable. Results & Data ([facility]) Vital Signs (Past 12 Hours) Vital Signs Temp Pulse Pulse Resp BP Pulse Ox 09/23/20 08:25 37.3 C 74 18 105/51 L 97 09/23/20 07:27 75 09/23/20 01:29 88 09/23/20 01:17 37.2 C 90 18 127/69 96 09/22/20 22:42 37 C 95 H 16 122/69 98
[2020-09-23] MEDS: POTASSIUM CHLORIDE CRTAB 20 MEQ TABCR PO SCH ×2 (10:24→17:58)
[2020-09-23] MEDS: HYDROCODONE/ACETAMOPHEN 5/325MG TAB PO PRN ×2 (10:27→18:05)
[2020-09-23] MEDS ORDERED: HYDROmorphone INJ 0.5 MG/0.5 ML SYR IV STA (11:18)
[2020-09-23] MEDS ORDERED: ALBUTEROL 0.5% NEB SOLN 2.5 MG/0.5 ML VIAL NEB STA (11:18)
--- NOTE | 2020-09-23 11:26 | Hospitalist Progress Note ---
Date of Service September 23, 2020 Assessment & Plan (1) S/P spinal surgery: Plan: Post op day# 1 S/P L2-L4 decompression, L3-L4 fusion by Dr Chana BRADFORD# 50ml pain management per ortho wound management per ortho PT/OT as appropriate DVT prophylaxis per ortho incentive spirometry (2) Chest pain: Plan: Patient with chronic chest pain reported. History of a normal stress test with echocardiogram revealing LVH. 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 Cardiac MRI reveals LVH all per notes. Troponin trended overnight and negative and EKG with LVH with repolarization abnormality, unchanged from prior. Chest pain is improved, question postop pneumonia below. Patient is more distracted by her severe postop back pain at this point. Continue to monitor peripherally. Doubt ACS. (3) Post-op pneumonia: Plan: There is more concern for a possible developing post op pneumonia in setting of increased sputum production this morning and new infiltrates on CXR. Also considered, but this is not an extensive differential, is post-op pulmonary edema. She continues on oxygen for comfort. Ordered sputum culture for gram stain. Will empirically cover her with broad spectrum antibiotics-start Levaquin now. Procalcitonin ordered. BNP ordered. Repeat CXR now. Also, despite no evidence of wheezing patient is requesting a breathing treatment. She reports a h/o asthma. Bronchodilator therapy ordered and PRN. (4) Diabetes mellitus type 1: Plan: At goal. A1c: 9.3 08/2020. Hold home insulin. Basal bolus insulin per protocol. Glycemic pharmacist on board, appreciate glycemic management (5) Hypertension: Plan: Continue lisinopril, metoprolol. HCTZ was scheduled again this morning, however, she is has a low normal BP and is hypokalemia today. Will hold. Replace potassium. (6) Asthma: Plan: No signs of exacerbation Continue home inhalers, albuterol neb as needed. (7) Hypokalemia: Plan: replace PO, hold HCTZ (8) Chronic abdominal pain: Plan: longstanding, not much worse than normal. Continue with outpatient workup. (9) Depression: Plan: Anxiety Continue Effexor per home regimen. (10) Post-operative hypothyroidism: Plan: h/o thyroid cancer S/P Surgery and Radiation with subsequent Post op hypothyroidism Continue levothyroxine per home regimen. (11) Hyperlipidemia: Plan: Continue atorvastatin (12) DVT prophylaxis: Plan: DVT Prophylaxis -SCDs per ortho spine Follows with Dr Garcia in [place], [place] for routine care Thank you for this consultation. We will follow the patient with you during their hospital stay. You can reach a member of the [facility] 16/09 via [email or web address]. Omayra Thompson DO [facility] and Anticipated Discharge Date Admission Date: September 22, 2020 Subjective 50-year-old female status post spinal surgery, postop day #1 The patient is in a significant amount of pain this morning despite oxycodone administration and Tylenol. She is reporting significant back pain. She reports persistent anterior chest pain on the left that is reproducible to palpation and less noticeable than yesterday. EKG is unchanged and troponin overnight is negative. She does report an increase sputum production this morning, reporting she is clearing her throat and unable to cough up much. She is not requiring oxygen but is using it for comfort oxygenating 97% on 2 L/min at this time. Review of Systems Review of Systems: All systems were reviewed and negative except as indicated in HPI above. Physical Exam Physical Exam: CONSTITUTIONAL: WNWD, vitals as above, generally in moderate distress EYES: normal conjunctivae, no scleral icterus ENT: external ear and nose normal, mucous membranes are dry RESPIRATORY: clear to auscultation bilaterally, no crackles, rales or wheezes, normal respiratory effort CARDIOVASCULAR: regular rate and rhythm, S1 and 2 heard without murmurs, gallops or rubs, no JVD, no peripheral edema, CHEST: inspection of chest was normal GASTROINTESTINAL: normal bowel sounds, soft, TTP in lower abdomen bilaterally, nondistended. MUSCULOSKELETAL: strength 5/5 throughout, head is normocephalic and atraumatic, neck supple, chest wall tenderness to palpation along the left sternal border and under the left breast. SKIN: warm and dry, back incision covered with surgical bandage that is c/d/i, ANGELINE drain intact. NEUROLOGIC: CN 2-12 grossly intact, no sensory deficit, normal cognition, normal speech, no gross focal deficits. PSYCHIATRIC: alert cooperative and oriented to person, place and time. Results & Data Results & Data ([facility]) Vital Signs (Past 12 Hours) Vital Signs Temp Pulse Pulse Resp BP Pulse Ox 09/23/20 08:25 37.3 C 74 18 105/51 L 97 09/23/20 07:27 75 09/23/20 01:29 88 09/23/20 01:17 37.2 C 90 18 127/69 96 Laboratory Results Short CBC 09/23/20 Range/Units 03:29 WBC 10.23 (4.8-10.8) K/uL Hgb 9.9 L (12.0-16.0) g/dL Hct 29.3 L (37-47) % Plt Count 219 (130-400) K/uL BMP 09/23/20 03:29 Sodium 139 Potassium 3.1 L Chloride 107 Carbon Dioxide 29 BUN 9 Creatinine 0.47 L Glucose 83 Calcium 8.3 L Cardiac Enzymes 09/22/20 09/23/20 09/23/20 Range/Units 22:10 03:29 10:07 Troponin I < 0.015 < 0.015 < 0.015 (0-0.045) ng/ml Medications Administered Current Inpatient Medications Acetaminophen (Acetaminophen 500 Mg Tab) 1,000 mg PO Q8H PRN PRN Reason: MILD Pain Scale 1,2,3 & Pre PT Stop: 10/22/20 13:32 Last Admin: 09/23/20 02:25 Dose: 1,000 mg Documented by: Hydrocodone Bitart/Acetaminophen (Hydrocodone/Acetamophen 5/325mg Tab) 1 - 2 tab PO Q4H PRN PRN Reason: Pain & Pre PT Stop: 10/06/20 13:32 Last Admin: 09/23/20 10:27 Dose: 2 tab Documented by: Al Hydrox/Mg Hydrox/Simethicone (Aluminum/Magnesium Susp 30 Ml Udc) 30 ml PO Q6H PRN PRN Reason: Dyspepsia Stop: 10/22/20 13:32 Albuterol (Albuterol Hfa 8 Gm Inhaler) 2 puffs INH Q6H PRN PRN Reason: Wheezing Stop: 10/22/20 13:32 Ascorbic Acid (Ascorbic Acid 500 Mg Tab) 1,000 mg PO QAM LIZBETH Stop: 10/23/20 08:59 Last Admin: 09/23/20 08:25 Dose: 1,000 mg Documented by: Atorvastatin Calcium (Atorvastatin 40 Mg Tab) 80 mg PO PM LIZBETH Stop: 10/22/20 20:59 Last Admin: 09/22/20 21:15 Dose: 80 mg Documented by: Bisacodyl (Bisacodyl 10 Mg Supp) 10 mg MO DAILY PRN PRN Reason: Constipation Stop: 10/22/20 13:32 Dextrose (Dextrose 50% 50 Ml Syringe) 25 - 50 ml IV UD PRN; Protocol PRN Reason: Hypoglycemia Protocol Stop: 10/22/20 13:59 Diphenhydramine HCl (Diphenhydramine Capsule 25 Mg Cap) 25 mg PO Q6H PRN PRN Reason: Allergic Rhinitis/Insomnia Stop: 10/22/20 13:32 Famotidine (Famotidine 20 Mg Tab) 20 mg PO Q12H PRN PRN Reason: Dyspepsia Stop: 10/22/20 13:32 Fluticasone/Vilanterol (Fluticasone/Vilanterol 100/25mcg 14 Puffs/Inhaler) 1 puffs INH [facility] Stop: 10/23/20 08:59 Last Admin: 09/23/20 08:28 Dose: 1 puffs Documented by: Glucagon (Glucagon For Inj 1 Mg Vial) 1 mg IM UD PRN; Protocol PRN Reason: Hypoglycemia Protocol Stop: 10/22/20 13:59 Glucose (Glucose 40% Gel 15 Gm Tube) 15 - 30 gm PO UD PRN; Protocol PRN Reason: Hypoglycemia Protocol Stop: 10/22/20 13:59 Glucose (Glucose 10 Tabs/Tube) 4 - 8 tabs PO UD PRN; Protocol PRN Reason: Hypoglycemia Protocol Stop: 10/22/20 13:59 Hydrochlorothiazide (Hydrochlorothiazide 25 Mg Tab) 12.5 mg PO QAM LIZBETH Stop: 10/23/20 08:59 Last Admin: 09/23/20 08:26 Dose: 12.5 mg Documented by: Hydromorphone HCl (Hydromorphone Inj 0.5 Mg/0.5 Ml Syr) 0.5 mg IV Q3H PRN PRN Reason: MOD pain (scale 4-6) & Pre PT Stop: 10/06/20 13:32 Last Admin: 09/23/20 02:59 Dose: 0.5 mg Documented by: Hydromorphone HCl (Hydromorphone Inj 1 Mg/Ml Syringe) 1 mg IV Q3H PRN PRN Reason: severe pain (scale 7-10) Stop: 10/06/20 13:32 Hydroxyzine HCl (Hydroxyzine Hcl 25 Mg Tab) 25 mg PO Q8H PRN PRN Reason: Anxiety Stop: 10/22/20 13:32 Promethazine HCl 12.5 mg/ (Sodium Chloride) 50.5 mls @ 202 mls/hr IV Q6H PRN PRN Reason: Nausea &/or Vomiting Stop: 10/22/20 13:32 Last Infusion: 09/22/20 21:54 Dose: Infused Documented by: Acetaminophen (Ofirmev) 1,000 mg in 100 mls @ 400 mls/hr IV Q8H PRN PRN Reason: Pain Rating 1-3 & Pre PT Stop: 09/25/20 13:32 Last Infusion: 09/22/20 21:32 Dose: Infused Documented by: Lorazepam (Ativan) 0.5 mg in 1 mls @ 1 mls/min IV Q8H PRN PRN Reason: Sedation/Anxiety Stop: 10/22/20 13:32 Influenza Virus Vaccine Quadrival (Do Not Administer Flu Vaccine) 1 ea N/A PRN PRN PRN Reason: Notification Stop: 10/22/20 13:32 Insulin Aspart (Insulin Aspart 100 Units/Ml 3 Ml Pen) 0 units SC ACHS [facility] Stop: 10/22/20 16:29 Last Admin: 09/23/20 08:31 Dose: 3 units Documented by: Insulin Glargine (Insulin Glargine 100 Unit/Ml Vial) 60 units SC HS [facility] Stop: 10/22/20 20:59 Last Admin: 09/22/20 21:32 Dose: Not Given Documented by: Levothyroxine Sodium (Levothyroxine Sodium 137 Mcg Tablet) 137 mcg PO DAILYBB [facility] Stop: 10/23/20 06:29 Last Admin: 09/23/20 05:36 Dose: 137 mcg Documented by: Lisinopril (Lisinopril 40 Mg Tab) 40 mg PO QAM [facility] Stop: 10/23/20 08:59 Last Admin: 09/23/20 08:25 Dose: 40 mg Documented by: Lorazepam (Lorazepam 0.5 Mg Tab) 0.5 mg PO Q8H PRN PRN Reason: sedation/anxiety Stop: 10/22/20 13:32 Magnesium Hydroxide (Magnesium Hydroxide Susp 30 Ml Udc) 30 ml PO Q24H PRN PRN Reason: Constipation Stop: 10/22/20 13:32 Metoclopramide HCl (Metoclopramide Hcl Inj 5 Mg/Ml 2 Ml Vial) 10 mg IV Q6H PRN PRN Reason: Nausea &/or Vomiting Stop: 10/22/20 13:32 Metoprolol Tartrate (Metoprolol Tartrate 100 Mg Tab) 100 mg PO BID LIZBETH Stop: 10/23/20 01:32 Last Admin: 09/23/20 08:25 Dose: 100 mg Documented by: Miscellaneous (Carbohydrates For Hypoglycemia ) 15 - 30 gm PO UD PRN PRN Reason: Hypoglycemia Treatment Stop: 10/22/20 13:59 Miscellaneous Information (Pharmacy Glycemic Mgmt Consult) 1 ea N/A UD PRN PRN Reason: Consult Stop: 10/22/20 09:56 Multivitamins (Multivitamin Tab) 1 tab PO QAM LIZBETH Stop: 10/23/20 08:59 Last Admin: 09/23/20 08:25 Dose: 1 tab Documented by: Naloxone HCl (Naloxone Hcl 0.4 Mg/1 Ml Vial/Carp) 0.1 mg IV Q5M PRN PRN Reason: Oversedation/respiratory dep Stop: 10/22/20 13:32 Nitroglycerin (Nitroglycerin Sl 0.4 Mg/Tab Tab) 0.4 mg SL UD PRN PRN Reason: Chest Pain Stop: 10/22/20 21:47 Ondansetron HCl (Ondansetron Inj 2 Mg/Ml 2 Ml Vial) 4 mg IV Q6H PRN PRN Reason: Nausea &/or Vomiting Stop: 10/22/20 13:32 Ondansetron HCl (Ondansetron 4 Mg Od Tab) 4 mg PO Q6H PRN PRN Reason: Nausea Stop: 10/22/20 13:32 Pantoprazole Sodium (Pantoprazole 40 Mg Tab) 40 mg PO BID LIZBETH Stop: 10/22/20 20:59 Last Admin: 09/23/20 08:25 Dose: 40 mg Documented by: Pneumococcal Polyvalent Vaccine (Do Not Administer Pneumococcal Vaccine) 1 ea N/A PRN PRN PRN Reason: Notification Stop: 10/22/20 13:32 Polyethylene Glycol (Polyethylene (Miralax) 17 Gm Pack) 17 gm PO Q6 LIZBETH Stop: 10/23/20 05:59 Last Admin: 09/23/20 05:36 Dose: 17 gm Documented by: Potassium Chloride (Potassium Chloride Crtab 20 Meq Tabcr) 40 meq PO Q6H LIZBETH Stop: 09/23/20 15:31 Last Admin: 09/23/20 10:24 Dose: 40 meq Documented by: Senna/Docusate Sodium (Docusate Sodium/Senna 50/8.6mg Tab) 2 tab PO HS LIZBETH Stop: 10/22/20 20:59 Last Admin: 09/22/20 21:15 Dose: 2 tab Documented by: Sodium Biphosphate/Sodium Phosphate (Sod Phosphate/Sod Biphosphate Enema 132 Ml Btl) 132 ml MO ONE PRN PRN Reason: Constipation Stop: 10/22/20 13:32 Tramadol HCl (Tramadol Hcl 50 Mg Tablet) 50 - 100 mg PO Q4H PRN PRN Reason: Moderate-Severe pain & Pre PT Stop: 10/22/20 13:32 Venlafaxine HCl (Venlafaxine Hcl 37.5 Mg Tab) 75 mg PO BID [facility] Stop: 10/22/20 20:59 Last Admin: 09/23/20 08:25 Dose: 75 mg Documented by: Vitamin D (Cholecalciferol 1,000 Units 25 Mcg Tab) 2,000 units PO QAM [facility] Stop: 10/23/20 08:59 Last Admin: 09/23/20 08:25 Dose: 2,000 units Documented by: Zinc Sulfate (Zinc Sulfate 220 Mg Capsule) 220 mg PO QAM [facility] Stop: 10/23/20 08:59 Last Admin: 09/23/20 08:25 Dose: 220 mg Documented by:
[2020-09-23] MEDS: HYDROmorphone INJ 1 MG/ML SYRINGE IV PRN (12:04)
--- NOTE | 2020-09-23 12:39 | XRay Report ---
SINGLE VIEW CHEST CLINICAL HISTORY: Dyspnea. Increased sputum production. FINDINGS: An AP, portable, upright chest radiograph is compared to study dated 09/22/2020. The cardiom ediastinal silhouette is unremarkable. There are left basilar opacities. Aeration at the right lung b ase has improved from yesterday. No large pleural effusion or pneumothorax is seen. The bony thorax i s grossly intact. Fusion hardware is noted in the lower cervical spine. Cholecystectomy clips are not ed in the right upper quadrant. IMPRESSION: Left basilar opacities are unchanged and could represent atelectasis versus a mild infect ious/inflammatory pneumonitis. Clinical correlation will be required. ACT 112: Negative or not required by law. Electronically signed by: Abraham Streeter M.D. 09/23/2020 12:38 PM
[2020-09-23] MEDS: levoFLOXacin/D5W 750 MG/150 ML BAG IV SCH (12:43)
--- NOTE | 2020-09-23 14:44 | Pharmacy Report ---
Pharmacy Glycemic Short Note 2 - Date of Service September 23, 2020 - Glycemic Short BSG Results (Last 24 hours): 09/22/20 09/22/20 09/23/20 17:51 21:12 03:29 Glucose 83 POC Glucose 134 H 115 H 09/23/20 09/23/20 07:31 12:12 Glucose POC Glucose 76 121 H OUTPATIENT ANTIDIABETIC REGIMEN: * Lantus 60 units SQ QAM * Apidra 10-20 units TID with meals ASSESSMENT: 09/23/20 * Patient's BSGs yesterday were [phone] mg/dL. Fasting today was 76 mg/dL. Lunch was 121 mg/dL. * Patient received Lantus 48 units yesterday and 6 units of Novolog. * Interviewed patient today due to T1DM status plus vastly different insulin requirements. * Patient's Lantus recently increased last week from 48 units to 60 units. She frequently uses life savers at night. * She has a carbohydrate ratio of 1: 10 and frequently uses 15-20 units of Apidra with meals. She eats many carbohydrates. * AM blood sugars are 200 mg/dL and HS BSGs are 200-300 mg/dL which fits with HbA1C. * She denies missed doses. * Has hypoglycemia often and this is "all over the place". Feels low when BSG 90-100 but did not feel low this morning. * Reduce Lantus by 20% to 40 units nightly. Want a higher fasting. * Loosen CF but keep tighter carbohydrate ratio since shifting to a more 50/50 split. Background * 50 y/o F admitted for lumbar decompression surgery. Patient is a Type 1 diabetic maintained on basal and bolus insulin at home. * Pt received her basal insulin dose last night. Fasting BSG was 176 mg/dl this AM. Continued same dose. * Novolog parameters ordered based on total home insulin dosing of around 120 units per day. PLAN FOR INPATIENT GLYCEMIC CONTROL: * Hold outpatient oral diabetes medications * Basal insulin * Lantus 40 units SQ HS * Bolus insulin * NovoLog per scale ACHS or Q6hrs while NPO * Goal Range: Low 110 mg/dL - High 140 mg/dL * Correction Factor: 20 mg/dL/unit * Nutritional / Prandial insulin per carb ratio of 1 unit per 6 grams CHO consumed PLAN FOR DISCHARGE: * Continue to follow-up with [facility].
[2020-09-23] MEDS ORDERED: ALBUTEROL 0.5% NEB SOLN 2.5 MG/0.5 ML VIAL NEB PRN (17:00)
[2020-09-23] MEDS ORDERED: INSULIN GLARGINE 100 UNIT/ML VIAL SC SCH (21:00)
[2020-09-23] MEDS: traMADol HCL 50 MG TABLET PO PRN (21:08)
[2020-09-23] MEDS: ATORVASTATIN 40 MG TAB PO SCH (21:14)
[2020-09-23] MEDS: DOCUSATE SODIUM/SENNA 50/8.6MG TAB PO SCH (21:52)
[2020-09-23] MEDS ORDERED: ACETAMINOPHEN 325 MG TAB PO PRN (23:54)
[2020-09-24] MEDS ORDERED: POTASSIUM CHLORIDE 40 MEQ in SODIUM CHLORIDE 0.9% 1000ML 1,000 ML IV ONE (00:15)
[2020-09-24] MEDS: POLYETHYLENE (MIRALAX) 17 GM PACK PO SCH ×5 (00:27→23:49)
[2020-09-24] MEDS: HYDROmorphone INJ 1 MG/ML SYRINGE IV PRN (00:49)
[2020-09-24] MEDS: LEVOTHYROXINE SODIUM 137 MCG TABLET PO SCH (06:05)
[2020-09-24] MEDS: HYDROCODONE/ACETAMOPHEN 5/325MG TAB PO PRN ×3 (07:33→17:39)
[2020-09-24] MEDS: METOPROLOL TARTRATE 100 MG TAB PO SCH ×2 (07:39→21:13)
[2020-09-24] MEDS: MULTIVITAMIN TAB PO SCH (07:39)
[2020-09-24] MEDS: ZINC SULFATE 220 MG CAPSULE PO SCH (07:39)
[2020-09-24] MEDS: PANTOprazole 40 MG TAB PO SCH ×2 (07:39→21:07)
[2020-09-24] MEDS: VENLAFAXINE HCL 37.5 MG TAB PO SCH ×2 (07:39→21:08)
[2020-09-24] MEDS: CHOLECALCIFEROL 1,000 UNITS 25 MCG TAB PO SCH (07:40)
[2020-09-24] MEDS: ASCORBIC ACID 500 MG TAB PO SCH (07:40)
[2020-09-24] MEDS: FLUTICASONE/VILANTEROL 100/25MCG 14 PUFFS/INHALER INH SCH (07:41)
--- NOTE | 2020-09-24 08:27 | Orthopedic Progress Note ---
Date of Service September 24, 2020 Assessment & Plan (1) Neurogenic claudication due to lumbar spinal stenosis: Plan: Maintain ANGELINE drain. Continue DVT prophylaxis in the form of TEDS/SCDS. Continue physical therapy. Pain control-no changes. Anticipate discharge home once medically stable. (2) Post-op pneumonia: Plan: on Levaquin. Repeat CXR Admission and Anticipated Discharge Date Admission Date: September 22, 2020 Supervising Physician Co-Signing Physician Notes Dr. Don Zayas Subjective Pt is POD #2 TLIF L3-[address] Zayas. She c/o back pain. Denies radicular leg pain. Has had cardiac workup which is essentially negative for acute issues. Denies chest pain this AM. She is on Levaquin for CXR showing infiltrates which is concerning for post op pneumonia. Yesterday in physical therapy she was able to ambulate 50ft. No other complaints. Review of Systems Review of Systems: All systems reviewed & are unremarkable except as noted in Subjective Physical Exam Physical Exam: lying in bed NAD A&Ox3 calves soft and nontender b/l lumbar dressing C/D/I with functioning ANGELINE drain Results & Data ([facility]) Vital Signs (Past 12 Hours) Vital Signs Temp Pulse Pulse Resp BP BP Pulse Ox 09/24/20 07:58 90 09/24/20 07:38 37.0 C 95 H 19 104/59 L 93 09/24/20 02:59 37.2 C 70 19 96/60 L 99 09/24/20 00:43 105/69 09/23/20 23:14 38.1 C H 69 17 106/62 98 Diagnostic Findings [facility], [id number] XRay Report Patient: CURLY LYNNE Date: 09/22/20MR#: [id number]: [id number] ID:[id number]: Date: 1970[facility] Zip: [place] [id number]: 50Location: 2NSex: FRoom/Bed: [id number] Phy: Don Zayas D.O.Diagnosis: Spinal Stenosis, Lumbar Region with NeurogenicPri Phy: Brinda Garcia M.D.Service Date: 09/23/20Fa Phy:Interpreting Phy: Abraham Streeter MDAdmit Phy: Don Zayas D.O. Ordering Phy: Omayra Thompson DO cc: ~ SINGLE VIEW CHEST CLINICAL HISTORY: Dyspnea. Increased sputum production. FINDINGS: An AP, portable, upright chest radiograph is compared to study dated 09/22/2020. The cardiomediastinal silhouette is unremarkable. There are left basilar opacities. Aeration at the right lung base has improved from yesterday. No large pleural effusion or pneumothorax is seen. The bony thorax is grossly intact. Fusion hardware is noted in the lower cervical spine. Cholecystectomy clips are noted in the right upper quadrant. IMPRESSION: Left basilar opacities are unchanged and could represent atelectasis versus a mild infectious/inflammatory pneumonitis. Clinical correlation will be required. ACT 112: Negative or not required by law. Electronically signed by: Abraham Streeter M.D. 09/23/2020 12:38 PM Dictated: 09/23/20 1236Transcribed: 09/23/20 1236
[2020-09-24] MEDS: INSULIN ASPART 100 UNITS/ML 3 ML PEN SC SCH ×4 (09:13→21:14)
[2020-09-24] MEDS: lisinopril 40 MG TAB PO SCH (09:15)
--- NOTE | 2020-09-24 09:48 | Electrocardiogram Report ---
Test Reason : Blood Pressure : / mmHG Vent. Rate : 093 BPM Atrial Rate : 093 BPM P-R Int : 142 ms QRS Dur : 080 ms QT Int : 328 ms P-R-T Axes : 060 020 070 degrees QTc Int : 407 ms Normal sinus rhythm Left atrial enlargement Nonspecific T wave abnormality Anterolateral leads Abnormal ECG When compared with ECG of 23-SEP-2020 05:28, Voltage criteria for left ventricular hypertrophy no longer present T-wave inversion in Lateral leads less pronnounced Confirmed by Shilo Tatum ([id number]) on 09/24/2020 9:48:46 AM Referred By: Don Zayas Confirmed By:Shilo Tatum
--- NOTE | 2020-09-24 11:29 | Pharmacy Report ---
Pharmacy Glycemic Short Note 2 - Date of Service September 24, 2020 - Glycemic Short BSG Results (Last 24 hours): 09/23/20 09/23/20 09/23/20 12:12 17:17 20:10 POC Glucose 121 H 105 H 153 H 09/24/20 07:41 POC Glucose 213 H OUTPATIENT ANTIDIABETIC REGIMEN: * Lantus 60 units SQ QAM * Apidra 10-20 units TID with meals ASSESSMENT: 09/24/20 * Patient's BSGs yesterday were [phone] mg/dL. Fasting today was 213 mg/dL. * Patient received Lantus 40 units yesterday and 24 units of Novolog. (TOTAL OF 64 UNITS) * Increase Lantus to 44 units tonight since fasting BSG trended up significantly. * Continue Novolog weight-based stress of 3. 09/23/20 * Patient's BSGs yesterday were [phone] mg/dL. Fasting today was 76 mg/dL. Lunch was 121 mg/dL. * Patient received Lantus 48 units yesterday and 6 units of Novolog. * Interviewed patient today due to T1DM status plus vastly different insulin requirements. * Patient's Lantus recently increased last week from 48 units to 60 units. She frequently uses life savers at night. * She has a carbohydrate ratio of 1: 10 and frequently uses 15-20 units of Apidra with meals. She eats many carbohydrates. * AM blood sugars are 200 mg/dL and HS BSGs are 200-300 mg/dL which fits with HbA1C. * She denies missed doses. * Has hypoglycemia often and this is "all over the place". Feels low when BSG 90-100 but did not feel low this morning. * Reduce Lantus by 20% to 40 units nightly. Want a higher fasting. * Loosen CF but keep tighter carbohydrate ratio since shifting to a more 50/50 split. Background * 50 y/o F admitted for lumbar decompression surgery. Patient is a Type 1 diabetic maintained on basal and bolus insulin at home. * Pt received her basal insulin dose last night. Fasting BSG was 176 mg/dl this AM. Continued same dose. * Novolog parameters ordered based on total home insulin dosing of around 120 units per day. PLAN FOR INPATIENT GLYCEMIC CONTROL: * Hold outpatient oral diabetes medications * Basal insulin * Lantus 44 units SQ HS * Bolus insulin * NovoLog per scale ACHS or Q6hrs while NPO * Goal Range: Low 110 mg/dL - High 140 mg/dL * Correction Factor: 20 mg/dL/unit * Nutritional / Prandial insulin per carb ratio of 1 unit per 7 grams CHO consumed PLAN FOR DISCHARGE: * Continue to follow-up with [facility].
[2020-09-24] MEDS: levoFLOXacin/D5W 750 MG/150 ML BAG IV SCH (13:06)
[2020-09-24] MEDS: HYDROmorphone INJ 0.5 MG/0.5 ML SYR IV PRN (13:39)
[2020-09-24 14:47] LABS: Appearance Urine Clear (Clear); Bilirubin Urine Negative (Negative); Blood Urine Negative (Negative); Color Urine Yellow; Glucose Urine UA Negative (Negative); Ketones Urine Negative (Negative); Leukocyte Esterase Urine Negative (Negative); Nitrite Urine Negative (Negative); Protein Urine Negative (Negative); Specific Gravity Urine 1.015 (1.000-1.030); Urobilinogen Urine Negative (Negative); pH Urine 5.5 (4.5-7.5)
[2020-09-24] MEDS: ACETAMINOPHEN 500 MG TAB PO PRN (16:24)
--- NOTE | 2020-09-24 19:46 | Hospitalist Progress Note ---
Date of Service September 24, 2020 Assessment & Plan (1) S/P spinal surgery: Plan: Post op day# 2 S/P L2-L4 decompression, L3-L4 fusion by Dr Chana TAVERASL# 50ml pain management per ortho wound management per ortho PT/OT as appropriate DVT prophylaxis per ortho incentive spirometry (2) Chest pain: Plan: Patient with chronic chest pain reported. No evidence of ACS. History of a normal stress test with echocardiogram revealing LVH. 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 Cardiac MRI reveals LVH all per notes. Troponin trended and negative and EKG with LVH with repolarization abnormality, unchanged from prior. Chest pain is improved, question postop pneumonia below. Patient is more distracted by her severe postop back pain. (3) Post-op pneumonia: Plan: New infiltrates, productive cough and fever post-operatively. Improved on Levaquin. (4) Diabetes mellitus type 1: Plan: At goal. A1c: 9.3 08/2020. Hold home insulin. Basal bolus insulin per protocol. Glycemic pharmacist on board, appreciate glycemic management (5) Hypertension: Plan: Low normal BP, lisinopril and HCTZ held, cont metoprolol. (6) Asthma: Plan: No signs of exacerbation Continue home inhalers, albuterol neb as needed. (7) Hypokalemia: Plan: replace PO, hold HCTZ (8) Chronic abdominal pain: Plan: longstanding, not much worse than normal. Dysuria reported today so question UTI vs irritation from recent catheterization. Cont outpatient workup-repeat UA negative. (9) Depression: Plan: Anxiety Continue Effexor per home regimen. (10) Post-operative hypothyroidism: Plan: h/o thyroid cancer S/P Surgery and Radiation with subsequent Post op hypothyroidism Continue levothyroxine per home regimen. (11) Hyperlipidemia: Plan: Continue atorvastatin (12) DVT prophylaxis: Plan: DVT Prophylaxis -SCDs per ortho spine [place] Thank you for this consultation. We will follow the patient with you during their hospital stay. You can reach a member of the [facility] 16/09 via [employer]. Omayra Thompson, DO [facility] Admission and Anticipated Discharge Date Admission Date: September 22, 2020 Subjective Pt is POD #2 lumbar decompression L3-[address] Zayas. She c/o back pain that is severe this morning. Denies chest pain, but has some residual pain to palpation in the same distribution around the left breast. Tm 38.1 last night-on treatment for post-op fever. Feels she is producing less sputum today and denies SOB but remains on oxygen for comfort. Ambulating some. Feels she cannot empty her bladder completely. Bowers catheter placed. Reports dysuria prior to bowers placement over the past few days, but didn't mention this. Now she has been on abx for 24 hours and UA is clear. Consider that she may have had a UTI, though. Review of Systems Review of Systems: All systems were reviewed and negative except as indicated in HPI above. Physical Exam Physical Exam: CONSTITUTIONAL: WNWD, vitals as above, generally in moderate distress EYES: normal conjunctivae, no scleral icterus ENT: external ear and nose normal, mucous membranes are dry RESPIRATORY: clear to auscultation bilaterally, no crackles, rales or wheezes, normal respiratory effort CARDIOVASCULAR: regular rate and rhythm, S1 and 2 heard without murmurs, gallops or rubs, no JVD, no peripheral edema, CHEST: inspection of chest was normal GASTROINTESTINAL: normal bowel sounds, soft, TTP in lower abdomen bilaterally, nondistended. MUSCULOSKELETAL: strength 5/5 throughout, head is normocephalic and atraumatic, neck supple, chest wall tenderness to palpation along the left sternal border and under the left breast. SKIN: warm and dry, back incision covered with surgical bandage that is c/d/i, ANGELINE drain intact. NEUROLOGIC: CN 2-12 grossly intact, no sensory deficit, normal cognition, normal speech, no gross focal deficits. PSYCHIATRIC: alert cooperative and oriented to person, place and time. Results & Data Results & Data ([facility]) Vital Signs (Past 12 Hours) Vital Signs Temp Pulse Pulse Resp BP BP Pulse Ox 09/24/20 17:57 86 09/24/20 16:00 37.3 C 81 18 102/67 94 09/24/20 12:37 37.2 C 78 16 98/62 L 09/24/20 10:50 37.0 C 75 18 93/56 L 100/66 97 09/24/20 08:23 36.4 C L 74 20 155/83 H 98 09/24/20 07:58 90 Laboratory Results Urine 09/24/20 Range/Units Unknown Urine Color Yellow Urine Appearance Clear (Clear) Urine pH 5.5 (4.5-7.5) Ur Specific [place] 1.015 (1.000-1.030) Urine Protein Negative (Negative) Urine Glucose (UA) Negative (Negative) Medications Administered Current Inpatient Medications Acetaminophen (Acetaminophen 500 Mg Tab) 1,000 mg PO Q8H PRN PRN Reason: MILD Pain Scale 1,2,3 & Pre PT Stop: 10/22/20 13:32 Last Admin: 09/24/20 16:24 Dose: 1,000 mg Documented by: Acetaminophen (Acetaminophen 325 Mg Tab) 325 mg PO Q6H PRN PRN Reason: Fever Stop: 10/23/20 23:53 Last Admin: 09/24/20 00:26 Dose: 325 mg Documented by: Hydrocodone Bitart/Acetaminophen (Hydrocodone/Acetamophen 5/325mg Tab) 1 - 2 tab PO Q4H PRN PRN Reason: Pain & Pre PT Stop: 10/06/20 13:32 Last Admin: 09/24/20 17:39 Dose: 2 tab Documented by: Al Hydrox/Mg Hydrox/Simethicone (Aluminum/Magnesium Susp 30 Ml Udc) 30 ml PO Q6H PRN PRN Reason: Dyspepsia Stop: 10/22/20 13:32 Albuterol (Albuterol Hfa 8 Gm Inhaler) 2 puffs INH Q6H PRN PRN Reason: Wheezing Stop: 10/22/20 13:32 Albuterol (Albuterol 0.5% Neb Soln 2.5 Mg/0.5 Ml Vial) 2.5 mg NEB Q6R PRN PRN Reason: SOB/wheezing Stop: 10/23/20 16:59 Ascorbic Acid (Ascorbic Acid 500 Mg Tab) 1,000 mg PO QAM LIZBETH Stop: 10/23/20 08:59 Last Admin: 09/24/20 07:40 Dose: 1,000 mg Documented by: Atorvastatin Calcium (Atorvastatin 40 Mg Tab) 80 mg PO PM LIZBETH Stop: 10/22/20 20:59 Last Admin: 09/23/20 21:14 Dose: 80 mg Documented by: Bisacodyl (Bisacodyl 10 Mg Supp) 10 mg UT DAILY PRN PRN Reason: Constipation Stop: 10/22/20 13:32 Dextrose (Dextrose 50% 50 Ml Syringe) 25 - 50 ml IV UD PRN; Protocol PRN Reason: Hypoglycemia Protocol Stop: 10/22/20 13:59 Diphenhydramine HCl (Diphenhydramine Capsule 25 Mg Cap) 25 mg PO Q6H PRN PRN Reason: Allergic Rhinitis/Insomnia Stop: 10/22/20 13:32 Famotidine (Famotidine 20 Mg Tab) 20 mg PO Q12H PRN PRN Reason: Dyspepsia Stop: 10/22/20 13:32 Fluticasone/Vilanterol (Fluticasone/Vilanterol 100/25mcg 14 Puffs/Inhaler) 1 puffs INH QAM LIZBETH Stop: 10/23/20 08:59 Last Admin: 09/24/20 07:41 Dose: 1 puffs Documented by: Glucagon (Glucagon For Inj 1 Mg Vial) 1 mg IM UD PRN; Protocol PRN Reason: Hypoglycemia Protocol Stop: 10/22/20 13:59 Glucose (Glucose 40% Gel 15 Gm Tube) 15 - 30 gm PO UD PRN; Protocol PRN Reason: Hypoglycemia Protocol Stop: 10/22/20 13:59 Glucose (Glucose 10 Tabs/Tube) 4 - 8 tabs PO UD PRN; Protocol PRN Reason: Hypoglycemia Protocol Stop: 10/22/20 13:59 Hydrochlorothiazide (Hydrochlorothiazide 25 Mg Tab) 12.5 mg PO QAM LIZBETH Stop: 10/23/20 08:59 Last Admin: 09/23/20 08:26 Dose: 12.5 mg Documented by: Hydromorphone HCl (Hydromorphone Inj 0.5 Mg/0.5 Ml Syr) 0.5 mg IV Q3H PRN PRN Reason: MOD pain (scale 4-6) & Pre PT Stop: 10/06/20 13:32 Last Admin: 09/24/20 13:39 Dose: 0.5 mg Documented by: Hydromorphone HCl (Hydromorphone Inj 1 Mg/Ml Syringe) 1 mg IV Q3H PRN PRN Reason: severe pain (scale 7-10) Stop: 10/06/20 13:32 Last Admin: 09/24/20 00:49 Dose: 1 mg Documented by: Hydroxyzine HCl (Hydroxyzine Hcl 25 Mg Tab) 25 mg PO Q8H PRN PRN Reason: Anxiety Stop: 10/22/20 13:32 Promethazine HCl 12.5 mg/ (Sodium Chloride) 50.5 mls @ 202 mls/hr IV Q6H PRN PRN Reason: Nausea &/or Vomiting Stop: 10/22/20 13:32 Last Infusion: 09/22/20 21:54 Dose: Infused Documented by: Acetaminophen (Ofirmev) 1,000 mg in 100 mls @ 400 mls/hr IV Q8H PRN PRN Reason: Pain Rating 1-3 & Pre PT Stop: 09/25/20 13:32 Last Infusion: 09/22/20 21:32 Dose: Infused Documented by: Lorazepam (Ativan) 0.5 mg in 1 mls @ 1 mls/min IV Q8H PRN PRN Reason: Sedation/Anxiety Stop: 10/22/20 13:32 Influenza Virus Vaccine Quadrival (Do Not Administer Flu Vaccine) 1 ea N/A PRN PRN PRN Reason: Notification Stop: 10/22/20 13:32 Insulin Aspart (Insulin Aspart 100 Units/Ml 3 Ml Pen) 0 units SC ACHS [facility] Stop: 10/22/20 16:29 Last Admin: 09/24/20 17:34 Dose: 6 units Documented by: Insulin Glargine (Insulin Glargine 100 Unit/Ml Vial) 44 units SC HS [facility] Stop: 10/24/20 20:59 Levofloxacin (Levofloxacin 750 Mg Tab) 750 mg PO DAILY@1100 [facility] Stop: 09/30/20 10:59 Levothyroxine Sodium (Levothyroxine Sodium 137 Mcg Tablet) 137 mcg PO DAILYBB [facility] Stop: 10/23/20 06:29 Last Admin: 09/24/20 06:05 Dose: 137 mcg Documented by: Lisinopril (Lisinopril 40 Mg Tab) 40 mg PO QAM [facility] Stop: 10/23/20 08:59 Last Admin: 09/24/20 09:15 Dose: Not Given Documented by: Lorazepam (Lorazepam 0.5 Mg Tab) 0.5 mg PO Q8H PRN PRN Reason: sedation/anxiety Stop: 10/22/20 13:32 Magnesium Hydroxide (Magnesium Hydroxide Susp 30 Ml Udc) 30 ml PO Q24H PRN PRN Reason: Constipation Stop: 10/22/20 13:32 Metoclopramide HCl (Metoclopramide Hcl Inj 5 Mg/Ml 2 Ml Vial) 10 mg IV Q6H PRN PRN Reason: Nausea &/or Vomiting Stop: 10/22/20 13:32 Metoprolol Tartrate (Metoprolol Tartrate 100 Mg Tab) 100 mg PO BID [facility] Stop: 10/23/20 01:32 Last Admin: 09/24/20 07:39 Dose: 100 mg Documented by: Miscellaneous (Carbohydrates For Hypoglycemia ) 15 - 30 gm PO UD PRN PRN Reason: Hypoglycemia Treatment Stop: 10/22/20 13:59 Miscellaneous Information (Pharmacy Glycemic Mgmt Consult) 1 ea N/A UD PRN PRN Reason: Consult Stop: 10/22/20 09:56 Multivitamins (Multivitamin Tab) 1 tab PO QAM [facility] Stop: 10/23/20 08:59 Last Admin: 09/24/20 07:39 Dose: 1 tab Documented by: Naloxone HCl (Naloxone Hcl 0.4 Mg/1 Ml Vial/Carp) 0.1 mg IV Q5M PRN PRN Reason: Oversedation/respiratory dep Stop: 10/22/20 13:32 Nitroglycerin (Nitroglycerin Sl 0.4 Mg/Tab Tab) 0.4 mg SL UD PRN PRN Reason: Chest Pain Stop: 10/22/20 21:47 Ondansetron HCl (Ondansetron Inj 2 Mg/Ml 2 Ml Vial) 4 mg IV Q6H PRN PRN Reason: Nausea &/or Vomiting Stop: 10/22/20 13:32 Last Admin: 09/23/20 21:10 Dose: 4 mg Documented by: Ondansetron HCl (Ondansetron 4 Mg Od Tab) 4 mg PO Q6H PRN PRN Reason: Nausea Stop: 10/22/20 13:32 Pantoprazole Sodium (Pantoprazole 40 Mg Tab) 40 mg PO BID LIZBETH Stop: 10/22/20 20:59 Last Admin: 09/24/20 07:39 Dose: 40 mg Documented by: Pneumococcal Polyvalent Vaccine (Do Not Administer Pneumococcal Vaccine) 1 ea N/A PRN PRN PRN Reason: Notification Stop: 10/22/20 13:32 Polyethylene Glycol (Polyethylene (Miralax) 17 Gm Pack) 17 gm PO Q6 LIZBETH Stop: 10/23/20 05:59 Last Admin: 09/24/20 17:34 Dose: 17 gm Documented by: Senna/Docusate Sodium (Docusate Sodium/Senna 50/8.6mg Tab) 2 tab PO HS [facility] Stop: 10/22/20 20:59 Last Admin: 09/23/20 21:52 Dose: 2 tab Documented by: Sodium Biphosphate/Sodium Phosphate (Sod Phosphate/Sod Biphosphate Enema 132 Ml Btl) 132 ml UT ONE PRN PRN Reason: Constipation Stop: 10/22/20 13:32 Tramadol HCl (Tramadol Hcl 50 Mg Tablet) 50 - 100 mg PO Q4H PRN PRN Reason: Moderate-Severe pain & Pre PT Stop: 10/22/20 13:32 Last Admin: 09/23/20 21:08 Dose: 100 mg Documented by: Venlafaxine HCl (Venlafaxine Hcl 37.5 Mg Tab) 75 mg PO BID [facility] Stop: 10/22/20 20:59 Last Admin: 09/24/20 07:39 Dose: 75 mg Documented by: Vitamin D (Cholecalciferol 1,000 Units 25 Mcg Tab) 2,000 units PO QAM [facility] Stop: 10/23/20 08:59 Last Admin: 09/24/20 07:40 Dose: 2,000 units Documented by: Zinc Sulfate (Zinc Sulfate 220 Mg Capsule) 220 mg PO QAM [facility] Stop: 10/23/20 08:59 Last Admin: 09/24/20 07:39 Dose: 220 mg Documented by:
[2020-09-24] MEDS: traMADol HCL 50 MG TABLET PO PRN (20:59)
[2020-09-24] MEDS: ATORVASTATIN 40 MG TAB PO SCH (21:06)
[2020-09-24] MEDS: DOCUSATE SODIUM/SENNA 50/8.6MG TAB PO SCH (21:06)
[2020-09-24] MEDS: INSULIN GLARGINE 100 UNIT/ML VIAL SC SCH (21:15)
[2020-09-25] MEDS: HYDROCODONE/ACETAMOPHEN 5/325MG TAB PO PRN ×4 (00:14→23:27)
[2020-09-25] MEDS: HYDROmorphone INJ 1 MG/ML SYRINGE IV PRN (02:33)
[2020-09-25] MEDS: traMADol HCL 50 MG TABLET PO PRN ×2 (05:24→15:43)
[2020-09-25] MEDS: POLYETHYLENE (MIRALAX) 17 GM PACK PO SCH ×3 (05:26→17:48)
[2020-09-25] MEDS: LEVOTHYROXINE SODIUM 137 MCG TABLET PO SCH (05:32)
[2020-09-25 07:49] LABS: Hematocrit (blood only) 28.4 % (37-47); Hemoglobin 9.7 g/dL (12.0-16.0); Mean Corpuscular Hemoglobin 29.1 pg (25-34); Mean Corpuscular Hgb Conc 34.2 g/dL (32-36); Mean Corpuscular Volume 85.3 fL (80-100); Platelet Count 198 K/uL (130-400); RDW Coefficient of Variation 13.1 % (11.5-14.5); RDW Standard Deviation 41.2 fL (36.4-46.3); Red Blood Count 3.33 M/uL (4.2-5.4)
[2020-09-25 08:23] LABS: BUN Creatinine Ratio 11.6 (10-20); Calcium 8.8 mg/dl (8.5-10.1); Creatinine Clr Calc Pharmacy 119.4 ml/min; Est GFR (African American) 125.9 ml/min; Est GFR (Non-African American) 108.6 ml/min; Magnesium 1.7 mg/dl (1.8-2.4); Potassium 3.6 mmol/L (3.5-5.1)
[2020-09-25] MEDS: INSULIN ASPART 100 UNITS/ML 3 ML PEN SC SCH ×4 (08:35→21:47)
[2020-09-25] MEDS: ZINC SULFATE 220 MG CAPSULE PO SCH (08:42)
[2020-09-25] MEDS: MULTIVITAMIN TAB PO SCH (08:42)
[2020-09-25] MEDS: PANTOprazole 40 MG TAB PO SCH ×2 (08:42→20:13)
[2020-09-25] MEDS: CHOLECALCIFEROL 1,000 UNITS 25 MCG TAB PO SCH (08:42)
[2020-09-25] MEDS: FLUTICASONE/VILANTEROL 100/25MCG 14 PUFFS/INHALER INH SCH (08:42)
[2020-09-25] MEDS: METOPROLOL TARTRATE 100 MG TAB PO SCH ×2 (08:42→20:14)
[2020-09-25] MEDS: ASCORBIC ACID 500 MG TAB PO SCH (08:42)
[2020-09-25] MEDS: VENLAFAXINE HCL 37.5 MG TAB PO SCH ×2 (08:42→20:14)
[2020-09-25] MEDS: ACETAMINOPHEN 500 MG TAB PO PRN (08:42)
--- NOTE | 2020-09-25 10:41 | Orthopedic Progress Note ---
Date of Service September 25, 2020 Assessment & Plan (1) Neurogenic claudication due to lumbar spinal stenosis: Plan: This time we will continue to encourage physical therapy discontinue her drain today. Await clearance from medicine for discharge home. Admission and Anticipated Discharge Date Admission Date: September 22, 2020 Subjective Back pain controlled radiculopathy improved. She is struggling with some left leg pain consistent with trochanteric bursitis. Physical Exam Physical Exam: On exam she is ambulating about the room with excellent posture. Good strength testing. She is marked tenderness palpation of the left trochanter and IT band. Results & Data ([facility]) Vital Signs (Past 12 Hours) Vital Signs Temp Pulse Resp BP Pulse Ox 09/25/20 08:20 38.3 C H 97 H 18 153/74 H 93 09/24/20 23:12 37.3 C 75 17 97/62 L 97
[2020-09-25] MEDS: levoFLOXacin 750 MG TAB PO SCH (11:09)
--- NOTE | 2020-09-25 16:23 | Hospitalist Progress Note ---
Date of Service September 25, 2020 Assessment & Plan (1) S/P spinal surgery: Plan: Post op day# 3 S/P L2-L4 decompression, L3-L4 fusion by Dr Chana BRADFORD# 50ml Pain management/DVT prophylaxis as per primary team. Continue to work with PT/OT. Primary complaint today was left hip pain. (2) Chest pain: Plan: History of a normal stress test with echocardiogram revealing LVH. 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 Cardiac MRI reveals LVH all per notes. Troponins have been negative. Her EKG is nonischemic. Patient denies any chest pain, shortness of breath, palpitations or any dizziness. (3) Post-op pneumonia: Plan: Currently patient is on room air. Continue Levaquin. Patient remains afebrile. WBC is within normal limit. Can likely be discharged tomorrow. (4) Dysuria: Plan: Patient reports dysuria and increased urinary frequency. However, UA has been negative. (5) Hyperlipidemia: Plan: Continue atorvastatin (6) Hypertension: Plan: Continue holding lisinopril and hydrochlorothiazide. Cont metoprolol. (7) Asthma: Plan: No signs of exacerbation Continue home inhalers, albuterol neb as needed. (8) Depression: Plan: Anxiety Continue Effexor per home regimen. (9) Diabetes mellitus type 1: Plan: At goal. A1c: 9.3 08/2020. Hold home insulin. Basal bolus insulin per protocol. Glycemic pharmacist on board, appreciate glycemic management Admission and Anticipated Discharge Date Admission Date: September 22, 2020 Subjective Patient complains of left hip pain that radiates to the thigh. Reports feeling nauseous but no episodes of vomiting. Denies any chest pain, shortness of breath or any cough today. Does report dysuria and increased urinary frequency. Rest of the review of systems negative Review of Systems Review of Systems: All systems reviewed & are unremarkable except as noted in HPI & below Physical Exam Physical Exam: General: A&Ox3 HENT: NCAT, MMM, EOMI Eyes: PERRLA Neck: Supple, normal range of motion CVS: normal rate and rhythm Resp: b/l good breath sounds Abdomen: Soft, ND/NT, +BS Extremities: No c/c/e Neuro: face symmetric, no focal deficit Skin: no rashes/lesions/errythema MSK: back susan in place Results & Data Results & Data ([facility]) Vital Signs (Past 12 Hours) Vital Signs Temp Pulse Resp BP BP Pulse Ox 09/25/20 15:38 37.1 C 76 16 131/72 100 09/25/20 08:20 38.3 C H 97 H 18 153/74 H 93
[2020-09-25] MEDS: ATORVASTATIN 40 MG TAB PO SCH (20:12)
[2020-09-25] MEDS: DOCUSATE SODIUM/SENNA 50/8.6MG TAB PO SCH (20:13)
[2020-09-25] MEDS: INSULIN GLARGINE 100 UNIT/ML VIAL SC SCH (21:47)
[2020-09-26] MEDS: traMADol HCL 50 MG TABLET PO PRN (02:31)
[2020-09-26] MEDS: HYDROmorphone INJ 1 MG/ML SYRINGE IV PRN (04:08)
[2020-09-26] MEDS: LEVOTHYROXINE SODIUM 137 MCG TABLET PO SCH (06:18)
[2020-09-26] MEDS: HYDROCODONE/ACETAMOPHEN 5/325MG TAB PO PRN (08:08)
[2020-09-26] MEDS: METOPROLOL TARTRATE 100 MG TAB PO SCH (08:10)
[2020-09-26] MEDS: VENLAFAXINE HCL 37.5 MG TAB PO SCH (08:11)
[2020-09-26] MEDS: PANTOprazole 40 MG TAB PO SCH (08:11)
[2020-09-26] MEDS: ASCORBIC ACID 500 MG TAB PO SCH (08:11)
[2020-09-26] MEDS: FLUTICASONE/VILANTEROL 100/25MCG 14 PUFFS/INHALER INH SCH (08:12)
[2020-09-26] MEDS: MULTIVITAMIN TAB PO SCH (08:12)
[2020-09-26] MEDS: ZINC SULFATE 220 MG CAPSULE PO SCH (08:12)
[2020-09-26] MEDS: CHOLECALCIFEROL 1,000 UNITS 25 MCG TAB PO SCH (08:12)
[2020-09-26] MEDS: INSULIN ASPART 100 UNITS/ML 3 ML PEN SC SCH ×2 (09:12→13:06)
--- NOTE | 2020-09-26 10:55 | Discharge Summary ---
Date of Service September 26, 2020 Admission HPI Per Admitting Provider This is a 50-year-old female who presents with chronic persistent back and leg pain. Failing course of nonoperative care is here for surgical intervention. Principal Diagnosis Lumbar spinal stenosis with neurogenic claudication Discharge Data Allergies Allergy/AdvReac Type Severity Reaction Status Date / Time ortega Allergy Severe Anaphylaxis Verified 09/08/20 14:53 ibuprofen Allergy Severe Anaphylaxis Verified 09/08/20 14:53 naproxen Allergy Severe Anaphylaxis Verified 09/08/20 14:53 oxycodone Allergy Severe Anaphylaxis Verified 09/08/20 14:53 Penicillins Allergy Severe Anaphylaxis Verified 09/08/20 14:53 pineapple Allergy Severe Anaphylaxis Verified 09/08/20 14:53 fruit Allergy Difficulty Uncoded 09/22/20 06:12 Breathing Consultations 09/22/20 13:33 Consult Hospitalist Routine Procedures Performed Operation Date: 09/22/20 07:45 Actual Procedures p L3-L4 Decompression and Fusion, Spinal Cord Monitoring(Not Applicable) - Don Zayas DO Ordered Studies 09/22/20 07:45 FL lumbar spine 2-3V Routine Hospital Course (1) Neurogenic claudication due to lumbar spinal stenosis: Patient with lumbar decompression fusion was taken to the PACU postoperatively secondary some sharp chest discomfort. It was determined she may have had a case of pneumonia. She was treated with this without difficulty. She was up and ambulating tolerating physical therapy ANGELINE drain decreasing appropriately. Pain improved. Excellent strength testing. Subsequent discharge home. Discharge orders instructions from the chart for further review. Total Time Total Time Spent Total Time Spent (In Minutes): 20 minutes Discharge Plan Discharge Items Patient Disposition: Home - Self-Care Reason For Visit: Spinal Stenosis, Lumbar Region with Neurogenic Discharge Diagnosis: Lumbar spinal stenosis with neurogenic claudication Activity: As commented below Non-emergency contact: Primary Care Provider Call non-emergency contact if: you have any medication questions Follow-up/Referrals: Brinda Garcia M.D. [Primary Care Provider] - Diet: Regular Addtl Attending Provider Instructions: ACTIVITY RECOMMENDATIONS: SELF CARE INSTRUCTIONS AFTER THORACIC/LUMBAR FUSIONS 1. You may walk to your tolerance. It is good exercise for your legs and back. Expect some back and intermittent leg aches and pains. 2. You may perform "counter-top" level activities (make a sandwich, kacie with a project, etc.). 3. No bending or lifting of more than 10 pounds or back twisting of any nature (roll like a log when turning in bed). 4. You may ride in a car for 20-30 minutes at a time. No driving until after your first visit with your doctor. 5. Frequent changes of position and restricting sitting to 30 minutes at a time will help limit the amount of back spasms and stiffness you may experience. 6. You may discontinue the use of ambulatory aids (cane, crutches, etc.) once your strength and confidence allow. 7. You may quick print operator the shower and let water strike your incision when you arrive home at least once daily. Do not take a tub bath, sit in a hot tub or g o into a swimming pool until after your first recheck in the office. SPECIAL CARE INSTRUCTIONS: VERY IMPORTANT TO READ AND REVIEW A. Your surgical incision has been closed with a cosmetic suture under the skin that will dissolve in about 6 weeks. In 14 days, you can use a pair of clean scissors and cut the suture that is left outside of the skin at the ends of your incision. 1. The small skin tapes can be removed 7 days after surgery if they have not fallen off by that point. 2. You may keep the wound open to air as much as possible to promote healing after post-op day number 5 unless told otherwise by your doctor. 3. If you think the wound looks like it is becoming infected (redness or worsening drainage) and/or you are experiencing fever, chill or worsening back pain and muscle spasms, contact the office so that we may evaluate you as soon as possible. B. Complications are uncommon, but please contact us if you have any signs or symptoms of: 1. wound infection (fever higher than 102.5 degrees F, redness, separation of wound, drainage, or increasing pain from the incision) 2. blood clots in legs (pain, swelling, redness and warmth in legs) 3. urinary tract infection (fever higher than 102.5 degrees F, burning upon urination or increased frequency of urination) 4. nerve problems (inability to walk on your toes or heels, numbness, loss of bowel or bladder control) 5. any other symptoms that concern you C. Please call the office at if you have any concerns or questions about your operation or recovery. D. No smoking! Smoking drastically decreases the chance of a solid fusion. E. Do not take any anti-inflammatory medications (Indocin, Advil, Motrin, Aspirin, Naprosyn, etc.) as these may inhibit the chance of a solid fusion. Tylenol is okay to take for pain. MANAGING PAIN AFTER SPINAL SURGERY 1. Narcotic medication is intended for short-term use and will be provided for surgical pain. Surgical pain usually lasts for a period of 4-6 weeks. Narcotic medication includes Percocet, Vicodin, Darvocet, Tylenol #3 or Lortab. 2. Longer-term pain is more appropriately treated with non-narcotic medication such as Tylenol ES. 3. Muscle spasm is not appropriately treated with narcotics. Muscle relaxers such as Soma, Flexeril or Skelaxin can be used along with Tylenol ES. 4. Remember that we all live with some "aches and pains". This is not unusual or uncommon after an injury or as we get older. a. Back pain is expected and may include muscle spasms for 4 to 6 weeks after surgery. The pain should gradually improve. If the pain worsens for no apparent reason, please contact the office. b. Intermittent leg pain may also be experienced and should not be concerned about unless it worsens for no apparent reason. If so, please contact the office. 5. We will provide appropriate medication within the normal guidelines of their prescribed use. We will also be very cautious and aware of potential abuse and extended duration of patients' medication needs. a. Pain medications are for your comfort and to assist with sleep and rest so that the tissue can heal. They are not provided in order to return to normal activity and should not be used through the day. To do so or worsening pain at night can result from ongoing tissue damage and development of tolerance to the prescribed medicine. 6. Please allow 2-3 days to process refills. Prescriptions will not be mailed but must be picked up at the office. FOLLOW UP VISIT: Keep your scheduled follow-up appointment. Any questions, please call the office at . Pending Studies at Discharge: No Stand-Alone Forms: My [employer], Smoking Cessation Medications and DC Order Prescriptions: New hydrocodone-acetaminophen 5-325 mg tablet See Rx Instructions .ROUTE .COMPLEX PRN (Reason: pain) Qty: 30 RF: 0 tramadol 50 mg tablet 50 mg PO Q6H PRN (Reason: pain, moderate) Qty: 30 RF: 0 levofloxacin 750 mg Tablet 750 mg PO DAILY@1100 5 Days Qty: 5 RF: 0 Continued Insulin Glargine (Lantus) 100 UNIT/ML INJECTION 60 unit SC QPM Qty: 0 RF: 0 levothyroxine 137 mcg Tablet 137 mcg PO QAM RF: 0 atorvastatin 80 mg Tablet 80 mg PO PM RF: 0 venlafaxine 75 mg Tablet 75 mg PO BID RF: 0 metoprolol tartrate 100 mg Tablet 100 mg PO BID RF: 0 omeprazole 40 mg Capsule,Delayed Release(Dr/Ec) 40 mg PO BID RF: 0 hydrochlorothiazide 12.5 mg Capsule 12.5 mg PO QAM RF: 0 albuterol sulfate [Ventolin HFA] 90 mcg/actuation Hfa Aerosol Inhaler 2 puff INHALATION Q6H PRN (Reason: Wheezing) RF: 0 lisinopril 40 mg Tablet 40 mg PO QAM RF: 0 acetaminophen 500 mg Capsule 1,000 mg PO Q6H PRN (Reason: Pain) RF: 0 cholecalciferol (vitamin D3) [Vitamin D3] 50 mcg (2,000 unit) Capsule 50 mcg PO QAM RF: 0 Breo Ellipta 100-25 mcg/dose Blister With Device 1 inh INHALATION QAM RF: 0 multivitamin Tablet 1 tab PO QAM RF: 0 Vitamin C 1,000 mg Tablet Extended Release 1,000 mg PO QAM RF: 0 zinc 50 mg Tablet 50 mg PO QAM RF: 0 Apidra SoloStar U-100 Insulin 100 unit/mL Insulin Pen 10 - 20 unit SUBCUT TIDM RF: 0 Discharge Orders: Discharge Order (Routine); Ordered 09/26/20 Ordered By: Don Zayas Admission Data Admit Date/Time: 09/22/20 09:22 Attending Provider: Don Zayas Admit Provider: Don Zayas Primary Care Provider: Brinda Garcia Other Providers: Quinn Sterling
[2020-09-26 11:04] LABS: Basophils # (auto) 0.01 K/uL (0-0.2); Basophils % (auto) 0.1 %; Eosinophils # (auto) 0.17 K/uL (0-0.5); Eosinophils % (auto) 1.6 %; Hematocrit (blood only) 27.7 % (37-47); Hemoglobin 9.5 g/dL (12.0-16.0); Immature Granulocytes # (auto) 0.01 K/uL (0.00-0.02); Immature Granulocytes % (auto) 0.1 %; Lymphocytes # (auto) 1.97 K/uL (1.2-3.4); Lymphocytes % (auto) 18.2 %; Mean Corpuscular Hemoglobin 29.2 pg (25-34); Mean Corpuscular Hgb Conc 34.3 g/dL (32-36); Mean Corpuscular Volume 85.2 fL (80-100); Mean Platelet Volume 8.9 fL (7.4-10.4); Monocytes # (auto) 1.07 K/uL (0.11-0.59); Monocytes % (auto) 9.9 %; Neutrophils # (auto) 7.61 K/uL (1.4-6.5); Neutrophils % (auto) 70.1 %; Platelet Count 237 K/uL (130-400); RDW Standard Deviation 40.6 fL (36.4-46.3); Red Blood Count 3.25 M/uL (4.2-5.4); White Blood Count 10.84 K/uL (4.8-10.8)
[2020-09-26] MEDS: levoFLOXacin 750 MG TAB PO SCH (11:08)
--- NOTE | 2020-09-26 11:10 | XRay Report ---
XR chest 1V portable HISTORY: 50 years-old Female worsening hypoxia acute hypoxia COMPARISON: 09/23/2020 TECHNIQUE: Portable AP view of the chest FINDINGS: Cardiac mediastinal and hilar silhouettes are within normal limits. Mild linear subsegmental atelecta sis/scarring of the left lung base. No pneumothorax, pleural effusion, or lobar airspace consolidatio n or overt pulmonary edema. Degenerative changes of the shoulders and spine. Cervical spinal fusion h ardware. IMPRESSION: Mild linear left lung base opacities, favoring atelectasis. ACT 112: Negative or not required by law. The above report was generated using voice recognition software. It may contain grammatical, syntax o r spelling errors. Electronically signed by: Jareth Mccrary M.D. 09/26/2020 11:08 AM
[2020-09-26 11:24] LABS: Albumin Level 2.9 gm/dl (3.4-5.0); BUN Creatinine Ratio 14.2 (10-20); Calcium 9.2 mg/dl (8.5-10.1); Creatinine Clr Calc Pharmacy 109.4 ml/min; Est GFR (African American) 122.3 ml/min; Est GFR (Non-African American) 105.5 ml/min; Potassium 3.5 mmol/L (3.5-5.1)
[2020-09-26 11:28] LABS: Albumin Globulin Ratio 0.7 (0.9-2); Bilirubin,Total 0.6 mg/dl (0.2-1); Globulin 4.1 gm/dl (2.5-4.0)
--- NOTE | 2020-09-26 14:07 | Hospitalist Progress Note ---
Date of Service September 26, 2020 Assessment & Plan (1) S/P spinal surgery: Plan: Post op day# 4 S/P L2-L4 decompression, L3-L4 fusion by Dr Chana BRADFORD# 50ml Pain management/DVT prophylaxis as per primary team. Continue to work with PT/OT. (2) Chest pain: Plan: History of a normal stress test with echocardiogram revealing LVH. 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 Cardiac MRI reveals LVH all per notes. Troponins have been negative. Her EKG is nonischemic. Patient denies any chest pain, shortness of breath, palpitations or any dizziness. (3) Post-op pneumonia: Plan: This morning initially patient was on 2 L of nasal cannula and reported shortness of breath. Chest x-ray was obtained which revealed some atelectasis. Oxygen saturation was checked with ambulation patient was stable on room air. Leukocytosis improved. Patient noted to have elevated proBNP. Can resume hydrochlorothiazide at discharge. Continue Levaquin course at discharge. (4) Dysuria: Plan: Patient reports dysuria and increased urinary frequency. However, UA has been negative. (5) Hyperlipidemia: Plan: Continue atorvastatin (6) Hypertension: Plan: Can restart lisinopril and hydrochlorothiazide. Cont metoprolol. (7) Asthma: Plan: No signs of exacerbation Continue home inhalers, albuterol neb as needed. (8) Depression: Plan: Anxiety Continue Effexor per home regimen. (9) Diabetes mellitus type 1: Plan: At goal. A1c: 9.3 08/2020. Hold home insulin. Basal bolus insulin per protocol. Glycemic pharmacist on board, appreciate glycemic management Admission and Anticipated Discharge Date Admission Date: September 22, 2020 Subjective Upon arrival she was on 2 L of nasal cannula. Patient did report shortness of breath. Does have some nonproductive cough. Denies any fever, chills, abdominal pain, chest pain, or diarrhea. Review of Systems Review of Systems: All systems reviewed & are unremarkable except as noted in HPI & below Physical Exam Physical Exam: General: A&Ox3 HENT: NCAT, MMM, EOMI Eyes: PERRLA Neck: Supple, normal range of motion CVS: normal rate and rhythm Resp: b/l good breath sounds Abdomen: Soft, ND/NT, +BS Extremities: No c/c/e Neuro: face symmetric, no focal deficit Skin: no rashes/lesions/errythema MSK: dressing intact Results & Data Results & Data ([facility]) Vital Signs (Past 12 Hours) Vital Signs Temp Pulse Pulse Pulse Pulse Pulse Resp 09/26/20 12:27 38.2 C H 81 89 16 09/26/20 12:04 20 L 81 76 09/26/20 07:00 38.2 C H 89 16 Resp Resp BP BP Pulse Ox Pulse Ox Pulse Ox 09/26/20 12:27 153/74 H 119/69 98 09/26/20 12:04 18 18 83 L 93 09/26/20 07:00 119/69 98 Pulse Ox 09/26/20 12:27 09/26/20 12:04 90 09/26/20 07:00
[2020-09-26] MEDS ORDERED: INSULIN GLARGINE 100 UNIT/ML VIAL SC SCH (21:00)
--- NOTE | 2020-10-05 13:51 | Coding Query ---
CODING QUERY To promote full compliance with coding requirements relating to patient care, provider participation is requested in all cases of beading machine operator uncertainty. Please assist us with the question(s) below: Coding Question(s): Post-op Pneumonia is documented beginning on Progress Note 09/23. Please specify below, in your clinical opinion, regarding Post-op Pneumonia. (x ) Post-op Pneumonia is likely a postoperative complication ( ) Post-op Pneumonia is Not a postoperative complication ( ) Post-op Pneumonia is Other: Please Specify Physician's Response(s): Thank you Lacey Harrison Principal Diagnosis: "that condition established after study, to be chiefly responsible for occasioning the admission of the patient to the hospital for care." Co-Existing Principal Diagnosis: "when two or more diagnoses equally meet the criteria for principal diagnosis as determined by the circumstances of admission, diagnostic work up, and/or therapy provided, and the Alphabetic Index, Tabular List, or another coding guideline does not provide sequencing direction, any one of the diagnoses may be sequenced first." "When the physician has documented what appears to be a current diagnosis in the body of the record, but has not included the diagnosis in the final diagnostic statement, the physician should be asked whether the diagnosis should be added." ([facility] 2 QTR90. p3-4) HEIDY
--- NOTE | 2020-10-05 13:54 | Coding Query ---
To promote full compliance with coding requirements relating to patient care, provider participation is requested in all cases of ornamental plasterer helper uncertainty. Please assist us with the question(s) below: Coding Question(s): The diagnosis below was documented in the 09/24 Progress Note, then subsequently fell off all further documentation. Please indicate if it is still a possible diagnosis or ruled out. Physician's Response(s): POSSIBLE UTI - (QUESTION UTI. CONSIDER THAT SHE MAY HAVE HAD A UTI - documented on 09/24 Progress Note) ( ) Diagnosed and POA ( ) Diagnosed and not POA ( ) Ruled out ( x ) Other (please specify) Difficult to say because antibiotics had already been started when the urine was sampled for infection. She reported dysuria which may have been irritation from the [employer] and she reported a chronic issue with abdominal pain. Based on the culture results that came back on 09/26 (after I transferred her care) she appears to have not had a UTI, so would say UTI was "ruled out" based on the information available. gene MOODY
== END 2020-09-26 16:06 | disposition home or self-care (01) | DRG 453 ==
LOC: ASU 05:57 → MERGE 09:20 → PACUINP 09:22 → 3W 09:53 → 2N 09-23 01:26 → 3E 09-25 11:02